=== PATIENT | female | born 1945 | race Caucasian/White ===

== ENCOUNTER 2017-10-17 10:53 | Observation (INO) | payer OTHER ==
[2017-10-17 11:19] VITALS: BMI 34.8
--- NOTE | 2017-10-17 11:48 | PDOC ---
History of Present Illness - General Chief Complaint: Pain Stated Complaint: LEG PAIN Time Seen by Provider: 10/17/17 11:21 History Source: Patient Exam Limitations: No Limitations - History of Present Illness Initial Comments: 10/17/17 11:33 The patient is a 72F with a PMH of HTN, a-fib (on eliquis), COPD, and depression who presents to the ER with L ankle swelling and redness. The patient states that she noticed her ankle and dorsal foot getting red and slightly swollen 2 days ago. She admits to cellulitis in the same area in the past and states this feels identical to that pain. The patient denies any systemic symptoms including fevers, chills, nausea, vomiting, calf swelling, CP , SOB. Past History - Past Medical History Allergies/Adverse Reactions: Allergies Allergy/AdvReac Type Severity Reaction Status Date / Time No Known Allergies Allergy Verified 10/17/17 11:11 Home Medications: Ambulatory Orders Apixaban [Eliquis] 5 mg PO BID 10/17/17 Aspirin [ASA -] 81 mg PO DAILY 10/17/17 Brimonidine Tartrate/Timolol [Combigan Eye Drops] 1 drop OU HS 10/17/17 Cholecalciferol (Vitamin D3) [Vitamin D3] 1,000 unit PO DAILY 10/17/17 Cyanocobalamin [Vitamin B12 -] 100 mcg PO DAILY 10/17/17 Furosemide [Lasix] 20 mg PO DAILY 10/17/17 Latanoprost 0.005% Eye Drops [Xalatan 0.005% Eye Drops -] 1 drop HS 10/17/17 Levothyroxine Sodium [Levoxyl] 150 mcg PO DAILY 10/17/17 Lisinopril [Prinivil] 10 mg PO DAILY 10/17/17 Metoprolol Succinate [Toprol Xl] 100 mg PO Q12H 10/17/17 Oxybutynin Chloride [Ditropan Xl] 5 mg PO DAILY 10/17/17 Pantoprazole Sodium [Protonix] 40 mg PO DAILY 10/17/17 Simvastatin [Zocor -] 40 mg PO HS 10/17/17 Cardiac Disorders: Yes (afib) COPD: No HTN: Yes Hypercholesterolemia: Yes Thyroid Disease: Yes Other medical history: glacoma - Suicide/Smoking/Psychosocial Hx Smoking History: Former smoker Have you smoked in the past 12 months: No Information on smoking cessation initiated: No Hx Alcohol Use: No Drug/Substance Use Hx: No Substance Use Type: None Review of Systems - Review of Systems Able to Perform ROS?: Yes Comments:: 10/17/17 11:54 GENERAL/CONSTITUTIONAL: No fever or chills. No weakness. HEAD, EYES, EARS, NOSE AND THROAT: No change in vision. No ear pain or discharge. No sore throat. CARDIOVASCULAR: No chest pain, palpitations, or lightheadedness. RESPIRATORY: No cough, wheezing, shortness of breath, or hemoptysis. GASTROINTESTINAL: No nausea, vomiting, diarrhea, constipation, or abdominal pain. GENITOURINARY: No dysuria, frequency, hematuria, or change in urination. MUSCULOSKELETAL: No joint or muscle swelling or pain. No neck or back pain. SKIN: Positive for redness and swelling on L ankle and dorsal surface of foot. NEUROLOGIC: No headache, numbness, tingling, weakness, loss of consciousness, or change in strength/sensation. ENDOCRINE: No increased thirst. No abnormal weight change. HEMATOLOGIC/LYMPHATIC: No anemia, easy bleeding, or history of blood clots. ALLERGIC/IMMUNOLOGIC: No hives or skin allergy. Is the patient limited Turkish proficient: No *Physical Exam - Vital Signs Last Vital Signs Temp Pulse Resp BP Pulse Ox 98.4 F 84 18 156/100 97 10/17/17 11:11 10/17/17 11:11 10/17/17 11:11 10/17/17 11:11 10/17/17 11:11 - Physical Exam Comments: 10/17/17 11:54 GENERAL: Well developed, well nourished. Awake and alert. No acute distress. HEENT: Normocephalic, atraumatic. Hearing grossly normal. Moist mucous membranes. PERRLA, EOMI. No conjunctival pallor. NECK: Supple. Full ROM. CARDIOVASCULAR: Irregularly irregular rate and rhythm. No murmurs, rubs, or gallops. PULMONARY: No evidence of respiratory distress. Lungs clear to auscultation bilaterally. No wheezing, rales or rhonchi. ABDOMINAL: Soft. Non-tender. Non-distended. No rebound or guarding. GENITOURINARY: No CVA tenderness bilaterally. MUSCULOSKELETAL: Normal range of motion at all joints. No bony deformities or tenderness. EXTREMITIES: Redness over medial malleolus and dorsal surface of L foot, tender to palpation. DP pulses 2+ b/l. No cyanosis. No clubbing. No edema. No calf tenderness or swelling. SKIN: Warm and dry. Normal capillary refill. No rashes. No jaundice. NEUROLOGICAL: Alert, awake, appropriate. Cranial nerves 2-12 intact. Normal speech. Gait is normal without ataxia. PSYCHIATRIC: Cooperative. Good eye contact. Appropriate mood and affect. ED Treatment Course - LABORATORY CBC & Chemistry Diagram: 10/17/17 12:14 10/17/17 12:14 Medical Decision Making - Medical Decision Making 10/17/17 11:55 The patient is a 72F with a PMH of HTN, a-fib (on eliquis), COPD, and depression who presents with L dorsal and ankle redness and swelling. This is likely cellulitis. There are no signs of crepitus. The redness is very mild but it is warm to touch. Pending basic labs. Will give dose of IV abx and likely d/ c home with PO abx. 10/17/17 14:47 The patient stated to my attending that she has not been able to ambulate on her foot. Giving broad spectrum abx. Pt endorsed to [facility] for obs admission under Dr. Puentes. *DC/Admit/Observation/Transfer Diagnosis at time of Disposition: Cellulitis Qualifiers: Site of cellulitis: extremity Site of cellulitis of extremity: lower extremity Laterality: left Qualified Code(s): L03.116 - Cellulitis of left lower limb - Discharge Dispostion Condition at time of disposition: Stable Decision to Admit order: Yes - Referrals - Patient Instructions - Post Discharge Activity
--- NOTE | 2017-10-17 11:59 | PDOC ---
Attending Attestation - HPI HPI: 10/17/17 12:18 The patient is a 72-year-old female coming from an assisted living facility, with a past medical history of afib (on Eliquis), HTN, COPD, and depression, who presents to the ED with 2 days of left ankle and dorsal foot redness and swelling. The patient states that she has not been able to ambulate around her home due to the pain. She is visited regularly by aides who have keys to her apartment. She denies any recent trauma to the left foot or any recent falls. She reports having cellulitis about 2.5 years ago. She denies any history of DVTs or gout. The patient denies any fever, chills, nausea, vomiting, diarrhea, or abdominal pain. She denies having any other symptoms. Allergies: NKA PCP: Dr. Juli Buck - Medical Decision Making 10/17/17 12:27 Dr. Juli Buck was paged and notified via phone service. <Nikki Pierce - Last Filed: 10/17/17 12:27> - Resident Resident Name: Cristhian Lopez - ED Attending Attestation I have performed the following: I have examined & evaluated the patient, The case was reviewed & discussed with the resident, I agree w/resident's findings & plan, Exceptions are as noted - Physicial Exam PE: 10/17/17 12:13 awakealert lungs clear bilaterally heart irreg nomrg. abd soft nt nd. left ankle swollen, ttp , warmth, erythema. dorsum foot erythema. 2 + dp/ pt. knee Nt nd. nuero alert oriented x 3. - Medical Decision Making 10/17/17 12:14 72 yo F h/o afib, htn , HLD CHF with left leg sweling, pain unable to walk redness and swelling on left ankle exam, ttp. differential: cellulitis, osteo, gout, plan labs xray, lactate. abx. will portia require admission due to fact can not walk. will d/w pt pcp dr. juli buck 10/17/17 14:17 d/w pt pcp Heber Lawrence, will admit due to fact in assisted living, hasn't been able to walk due to pain and cellulitis. given vanco and zosyn. Dr Buck does not admit to [facility]. <Amee Lee - Last Filed: 10/17/17 14:18> Attestations - Attestations 10/17/17 12:18 Documentation prepared by Nikki Pierce, acting as medical language specialist for Amee Lee MD. <Nikki Pierce - Last Filed: 10/17/17 12:27>
[2017-10-17 12:34] LABS: BASO % 0.4 % (0-2.0); EOS % 1.2 % (0-4.5); HEMOGLOBIN 13.9 GM/dL (10.7-15.3); MEAN CELL VOLUME 84.8 fl (80-96); MEAN PLT VOLUME 7.6 fl (7.5-11.1); MONO % 10.1 % (3.8-10.2); NEUT % 77.3 % (42.8-82.8); PLATELET COUNT 231 K/MM3 (134-434); RBC 4.95 M/mm3 (3.60-5.2); RDW 15.4 % (11.6-15.6); WHITE BLOOD COUNT 9.5 K/mm3 (4.0-10.0)
[2017-10-17 13:05] LABS: ALK PHOS 116 U/L (45-117); ANION GAP 10 (8-16); BILIRUBIN,TOTAL 1.1 mg/dL (0.2-1.0); BLOOD UREA NITROGEN 20 mg/dL (7-18); CALCIUM 10.6 mg/dL (8.5-10.1); CHLORIDE 104 mmol/L (98-107); CO2 26 mmol/L (21-32); GLUCOSE,RANDOM 112 mg/dL (74-106); SGOT/AST 18 U/L (15-37); SGPT/ALT 13 U/L (12-78); SODIUM 140 mmol/L (136-145); TOT PROT 7.6 g/dl (6.4-8.2)
[2017-10-17] MEDS ORDERED: DEXTROSE 5% IVPB ONE (14:12)
[2017-10-17] MEDS ORDERED: VANCOMYCIN IVPB ONE (14:12)
[2017-10-17] MEDS ORDERED: WATER IVPB ONE (14:12)
[2017-10-17] MEDS ORDERED: PIPERACILLIN/TAZOB 3.375 GM 3.375 GM in DEXTROSE 5%-WATER - 50 ML IVPB ONE (14:13)
[2017-10-17] MEDS ORDERED: PIPERACILLIN/TAZOB 3.375 GM 3.375 GM/50 ML BAG IVPB ONE (14:17)
[2017-10-17] MEDS ORDERED: VANCOMYCIN 1 GRAM (PRE-DOCKED) 1,000 MG/250 ML BAG IVPB ONE (14:36)
--- NOTE | 2017-10-17 17:00 | HP ---
CHIEF COMPLAINT: Left ankle pain and swelling, inability to ambulate PCP: Dr. Nikolas Buck HISTORY OF PRESENT ILLNESS: This is a 72 year old female with PMHx of corin (on Eliquis), HTN, COPD, depression, hypothyroidism, who presented to the ED with left ankle erythema and pain and inability to ambulate for 2 days. The patient reports she had cellulitis about 2.5 years ago and that she feels she has it again. She states about 2 days ago she started having pain in her left ankle and noticed some swelling and erythema. She decided to come in after the pain was so severe she could not walk. She denies any calf pain, chest pain, palpitations, headaches, dizziness, syncope, trauma to the left leg, urinary symptoms, fever, chills. ER course was notable for: (1) Temp 98.4, pulse 84, BP 156/100, resp 18, O2 97% on RA (2) Left foot/ankle x-ray with osteoporosis and mild degenerative arthritis with no fracture or acute bone or joint abnormalities Recent Travel: denies PAST MEDICAL HISTORY: as above PAST SURGICAL HISTORY: denies Social History: Smoking: denies Alcohol: denies Drugs: denies Family History: Allergies No Known Allergies Allergy (Verified 10/17/17 11:11) HOME MEDICATIONS: Home Medications Medication Instructions Recorded Apixaban [Eliquis] 5 mg PO BID 10/17/17 Aspirin [ASA -] 81 mg PO DAILY 10/17/17 Brimonidine Tartrate/Timolol 1 drop OU HS 10/17/17 [Combigan Eye Drops] Cholecalciferol (Vitamin D3) 1,000 unit PO DAILY 10/17/17 [Vitamin D3] Cyanocobalamin [Vitamin B12 -] 100 mcg PO DAILY 10/17/17 Furosemide [Lasix] 20 mg PO DAILY 10/17/17 Latanoprost 0.005% Eye Drops 1 drop HS 10/17/17 [Xalatan 0.005% Eye Drops -] Levothyroxine Sodium [Levoxyl] 150 mcg PO DAILY 10/17/17 Lisinopril [Prinivil] 10 mg PO DAILY 10/17/17 Metoprolol Succinate [Toprol Xl] 100 mg PO Q12H 10/17/17 Oxybutynin Chloride [Ditropan Xl] 5 mg PO DAILY 10/17/17 Pantoprazole Sodium [Protonix] 40 mg PO DAILY 10/17/17 Simvastatin [Zocor -] 40 mg PO HS 10/17/17 REVIEW OF SYSTEMS CONSTITUTIONAL: Absent: fever, chills, diaphoresis, generalized weakness, malaise, loss of appetite, weight change HEENT: Absent: rhinorrhea, nasal congestion, throat pain, throat swelling, difficulty swallowing, mouth swelling, ear pain, eye pain, visual changes CARDIOVASCULAR: Absent: chest pain, syncope, palpitations, irregular heart rate, lightheadedness , peripheral edema RESPIRATORY: Absent: cough, shortness of breath, dyspnea with exertion, orthopnea, wheezing, stridor, hemoptysis GASTROINTESTINAL: Absent: abdominal pain, abdominal distension, nausea, vomiting, diarrhea, constipation, melena, hematochezia GENITOURINARY: Absent: dysuria, frequency, urgency, hesitancy, hematuria, flank pain, genital pain MUSCULOSKELETAL: Left ankle swelling and redness that began 2 days ago, unable to ambulate due to pain. Absent: back pain, neck pain SKIN: Absent: rash, itching, pallor HEMATOLOGIC/IMMUNOLOGIC: Absent: easy bleeding, easy bruising, lymphadenopathy, frequent infections ENDOCRINE: Absent: unexplained weight gain, unexplained weight loss, heat intolerance, cold intolerance NEUROLOGIC: Absent: headache, focal weakness or paresthesias, dizziness, seizure, mental status changes, bladder or bowel incontinence PSYCHIATRIC: Absent: anxiety, depression, suicidal or homicidal ideation, hallucinations. PHYSICAL EXAMINATION Vital Signs - 24 hr 10/17/17 10/17/17 11:11 15:28 Temperature 98.4 F 97.9 F Pulse Rate 84 Pulse Rate [ 87 Right Radial] Respiratory 18 17 Rate Blood Pressure 156/100 Blood Pressure 125/77 [Left Arm] O2 Sat by Pulse 97 95 Oximetry (%) GENERAL: Awake, alert, and fully oriented, in no acute distress. HEAD: Normal with no signs of trauma. EYES: Patient wearing sunglasses which she refused to remove EARS, NOSE, THROAT: Ears normal, nares patent, oropharynx clear without exudates. Moist mucous membranes. LUNGS: Breath sounds equal, clear to auscultation bilaterally. No wheezes, and no crackles. No accessory muscle use. HEART: Irregular pulse, normal S1 and S2 ABDOMEN: Soft, nontender, not distended, normoactive bowel sounds, no guarding, no rebound, no masses. MUSCULOSKELETAL: Normal range of motion at all joints. No bony deformities or tenderness. No CVA tenderness. UPPER EXTREMITIES: 2+ pulses, warm, well-perfused. No cyanosis. No clubbing. No peripheral edema. LOWER EXTREMITIES: Left foot/ankle with some patches of erythema/edema. Left calf tenderness with foot flexion. 2+ pulses, warm, well-perfused. PSYCHIATRIC: Cooperative. Appropriate mood and affect. SKIN: Warm, dry, normal turgor, no rashes or lesions noted, normal capillary refill. Laboratory Results - last 24 hr 10/17/17 10/17/17 10/17/17 12:14 12:14 14:33 WBC 9.5 RBC 4.95 Hgb 13.9 Hct 42.0 MCV 84.8 MCH 28.0 MCHC 33.0 RDW 15.4 Plt Count 231 MPV 7.6 Neutrophils % 77.3 Lymphocytes % 11.0 Monocytes % 10.1 Eosinophils % 1.2 Basophils % 0.4 Nucleated RBC % 0 Sodium 140 Potassium 4.0 Chloride 104 Carbon Dioxide 26 Anion Gap 10 BUN 20 H Creatinine 1.0 Creat Clearance w eGFR 54.50 Random Glucose 112 H Lactic Acid 1.1 Calcium 10.6 H Total Bilirubin 1.1 H AST 18 ALT 13 Alkaline Phosphatase 116 Total Protein 7.6 Albumin 4.0 Assessment: This is a 72 year old female with PMHx of a.fib (on Eliquis), HTN, COPD, depression, hypothyroidism, who presented to the ED with left ankle erythema and pain and inability to ambulate for 2 days. Plan: 1) Left ankle swelling, slight edema - Cellulitis vs. gout vs. DVT - F/u lower extremity ultrasound to r/o DVT - F/u uric acid level - Received Vancomycin and Zosyn in the ED. F/u ID consult for further abx recommendations (patient afebrile with normal WBC) 2) A.fib - Continue Eliquis (patient reports compliance) 3) Hypothyroidism - Continue Synthroid 4) HTN - Continue Lisinopril - Continue Toprol XL - Continue Lasix 5) Hyperlipidemia - Continue statin 6) F/E/N: - Sodium controlled diet - Monitor electrolytes 7) Prophylaxis: - PT evaluation - Continue Eliquis 8) Dispo: - Once condition improves CODE STATUS: FULL CODE Visit type - Emergency Visit Emergency Visit: Yes ED Registration Date: 10/17/17 Care time: The patient presented to the Emergency Department on the above date and was hospitalized for further evaluation of their emergent condition. - New Patient This patient is new to me today: Yes Date on this admission: 10/17/17 - Critical Care Critical Care patient: No Hospitalist Screening - Colonoscopy Questionnaire Colonoscopy Questionnaire: Colonoscopy Questionnaire - Patient: 50 - 75 years old and never had a screening colonoscopy: Unknown History of colon or rectal polyps, or CA: Unknown History of IBD, Crohn's disease or UC: Unknown History of abdominal radiation therapy as a child: Unknown - Relative: 1 with colon or rectal CA, or polyps at age 60 or younger: Unknown Colon or rectal CA diagnosed at age 45 or younger: Unknown Multiple relatives with colon or rectal CA: Unknown - Outcome: Screening Result: Negative Screen
--- NOTE | 2017-10-17 19:00 | CON.ID ---
Consult Consult Specialty:: infectious diseases Reason for Consultation:: cellulittis of the foot - History of Present Illness Chief Complaint: pain and swelling of the foot History of Present Illness: 72F with a PMH of HTN, a-fib (on eliquis), COPD, and depression who presents to the ER with L ankle and foot swelling and redness. The patient states that she noticed her ankle and dorsal foot getting red and slightly swollen 2 days ago. She admits to cellulitis in the same area in the past and states this feels identical to that pain. The patient denies any systemic symptoms including fevers, chills, nausea, vomiting, calf swelling, CP, SOB. patient mentions that she cannot place weight on the foot at all - History Source History Provided By: Patient, Medical Record Limitations to Obtaining History: Poor Historian - Alcohol/Substance Use Hx Alcohol Use: No - Smoking History Smoking history: Former smoker Have you smoked in the past 12 months: No Home Medications - Allergies Allergies/Adverse Reactions: Allergies Allergy/AdvReac Type Severity Reaction Status Date / Time No Known Allergies Allergy Verified 10/17/17 11:11 - Home Medications Home Medications: Ambulatory Orders Apixaban [Eliquis] 5 mg PO BID 10/17/17 Aspirin [ASA -] 81 mg PO DAILY 10/17/17 Brimonidine Tartrate/Timolol [Combigan Eye Drops] 1 drop OU HS 10/17/17 Cholecalciferol (Vitamin D3) [Vitamin D3] 1,000 unit PO DAILY 10/17/17 Cyanocobalamin [Vitamin B12 -] 100 mcg PO DAILY 10/17/17 Furosemide [Lasix] 20 mg PO DAILY 10/17/17 Latanoprost 0.005% Eye Drops [Xalatan 0.005% Eye Drops -] 1 drop HS 10/17/17 Levothyroxine Sodium [Levoxyl] 150 mcg PO DAILY 10/17/17 Lisinopril [Prinivil] 10 mg PO DAILY 10/17/17 Metoprolol Succinate [Toprol Xl] 100 mg PO Q12H 10/17/17 Oxybutynin Chloride [Ditropan Xl] 5 mg PO DAILY 10/17/17 Pantoprazole Sodium [Protonix] 40 mg PO DAILY 10/17/17 Simvastatin [Zocor -] 40 mg PO HS 10/17/17 Review of Systems - Review of Systems Constitutional: reports: No Symptoms Eyes: reports: No Symptoms HENT: reports: No Symptoms Neck: reports: No Symptoms Cardiovascular: reports: No Symptoms Respiratory: reports: No Symptoms Gastrointestinal: reports: No Symptoms Genitourinary: reports: No Symptoms Musculoskeletal: reports: Joint Swelling, Muscle Pain, Other (left side) Integumentary: reports: No Symptoms Neurological: reports: No Symptoms Endocrine: reports: No Symptoms Hematology/Lymphatic: reports: No Symptoms Psychiatric: reports: No Symptoms Physical Exam Vital Signs: Vital Signs Temperature 97.8 F 10/17/17 17:20 Pulse Rate 91 H 10/17/17 17:20 Respiratory Rate 17 10/17/17 17:20 Blood Pressure 127/89 10/17/17 17:20 O2 Sat by Pulse Oximetry (%) 95 10/17/17 17:20 Constitutional: Yes: Well Nourished, Calm, Mild Distress Eyes: Yes: Conjunctiva Clear HENT: Yes: Atraumatic, Normocephalic Neck: Yes: Supple, Trachea Midline Cardiovascular: Yes: Pulse Irregular Respiratory: Yes: Regular, CTA Bilaterally Gastrointestinal: Yes: Normal Bowel Sounds, Soft Musculoskeletal: Yes: Joint Swelling, Other Extremities: Yes: WNL Integumentary: Yes: Erythema Neurological: Yes: Alert, Oriented Psychiatric: Yes: Alert, Oriented Labs: CBC, BMP 10/17/17 12:14 10/17/17 12:14 Imaging - Results X-ray: Report Reviewed, Image Reviewed Assessment/Plan 72 year old female with PMHx of a.fib (on Eliquis), HTN, COPD, depression, hypothyroidism, who presented to the ED with left ankle erythema and pain and inability to ambulate for 2 days. 1) Left ankle swelling, slight edema - Cellulitis vs. gout 2) A.fib 3) Hypothyroidism 4) HTN 5) Hyperlipidemia plan follow imaging studies patient received vanco and zosyn estrella top vanco continue zosyn for now await uric acid level monitor for movement of the foot
[2017-10-17] MEDS ORDERED: COLCHICINE 0.6 MG TABLET (FP) PO ONE ×4 (20:00→23:45)
[2017-10-17] MEDS ORDERED: PATIENT'S OWN MEDICATION (NON-FORMULARY) (Brimonidine Tartrate/Timolol [Combigan 0.2%-0.5% OU SCH (22:00)
[2017-10-17] MEDS: APIXABAN 5 MG TABLET PO SCH (22:44)
[2017-10-17] MEDS: ATORVASTATIN CA 20 MG TABLET (FP) PO SCH (22:44)
[2017-10-17] MEDS: LATANOPROST 0.005% OPHTH SOLN 2.5ML BOTTLE OU SCH (22:45)
[2017-10-17] MEDS: TIMOLOL 0.5% OPHTHALMIC SOL 5 ML BOTTLE OU SCH (22:45)
[2017-10-17] MEDS: BRIMONIDINE TARTRATE 0.2% OPHTHALMIC 5 ML BOTTLE OU SCH (22:45)
[2017-10-18] MEDS ORDERED: PIPERACILLIN/TAZOBACTAM 3.375 GM VIAL IVPB ONE ×3 (01:53→16:51)
[2017-10-18] MEDS ORDERED: DEXTROSE 5%-WATER - 50 ML IVPB ONE ×3 (01:53→16:51)
[2017-10-18] MEDS: PIPERACILLIN/TAZOB 3.375 GM 3.375 GM in DEXTROSE 5%-WATER - 50 ML IVPB SCH ×3 (02:12→17:36)
[2017-10-18] MEDS: LEVOTHYROXINE NA 150 MCG TABLET PO SCH (06:08)
[2017-10-18 07:12] LABS: HEMOGLOBIN 12.7 GM/dL (10.7-15.3); MCH 28.3 pg (25.7-33.7); MCHC 33.5 g/dl (32.0-36.0); MEAN CELL VOLUME 84.5 fl (80-96); MEAN PLT VOLUME 7.3 fl (7.5-11.1); PLATELET COUNT 214 K/MM3 (134-434); RDW 14.8 % (11.6-15.6); WHITE BLOOD COUNT 9.8 K/mm3 (4.0-10.0)
[2017-10-18 08:37] LABS: ALBUMIN 3.4 g/dl (3.4-5.0); ANION GAP 9 (8-16); BILIRUBIN,TOTAL 1.3 mg/dL (0.2-1.0); BLOOD UREA NITROGEN 20 mg/dL (7-18); CHLORIDE 106 mmol/L (98-107); CO2 24 mmol/L (21-32); GLUCOSE,RANDOM 112 mg/dL (74-106); POTASSIUM 3.8 mmol/L (3.5-5.1); SGOT/AST 16 U/L (15-37); SODIUM 139 mmol/L (136-145); TOT PROT 6.9 g/dl (6.4-8.2)
[2017-10-18 08:53] LABS: ALK PHOS 101 U/L (45-117); SGPT/ALT 11 U/L (12-78)
[2017-10-18] MEDS ORDERED: PNEUMOC 13-VAL CONJ-DIP CRM/PF 0.5 ML DISP.SYRIN IM ONE (10:00)
[2017-10-18] MEDS: PANTOPRAZOLE 40 MG TABLET (FP) PO SCH (10:26)
[2017-10-18] MEDS: ASPIRIN 81 MG CHEWABLE TABLETS PO SCH (10:26)
[2017-10-18] MEDS: FUROSEMIDE 20 MG TABLET (FP) PO SCH (10:26)
[2017-10-18] MEDS: LISINOPRIL 10 MG TABLET (FP) PO SCH (10:26)
[2017-10-18] MEDS: TIMOLOL 0.5% OPHTHALMIC SOL 5 ML BOTTLE OU SCH ×2 (10:26→22:01)
[2017-10-18] MEDS: BRIMONIDINE TARTRATE 0.2% OPHTHALMIC 5 ML BOTTLE OU SCH ×2 (10:26→22:02)
[2017-10-18] MEDS: CHOLECALCIFEROL (VITAMIN D3) 1,000 UNIT TABLET (FP) PO SCH (10:26)
[2017-10-18] MEDS: SOLIFENACIN SUCCINATE 5 MG TAB (FP) PO SCH (10:26)
[2017-10-18] MEDS: APIXABAN 5 MG TABLET PO SCH ×2 (10:27→22:01)
[2017-10-18] MEDS ORDERED: PT OWN MED DRAWER 7, Y5N ONE (11:54)
[2017-10-18] MEDS: COLCHICINE 0.6 MG TABLET (FP) PO SCH (11:57)
[2017-10-18] MEDS: CYANOCOBALAMIN (VITAMIN B-12) 100 MCG TABLET PO SCH (12:27)
--- NOTE | 2017-10-18 13:35 | PN ---
Progress Note (short form) - Note Progress Note: Subjective: The patient was seen and examined at the bedside, she states her left foot pain has improved Only walked 5 feet with PT Edema and pain improved with colchysine Current Medications Generic Name Dose Route Start Last Admin Trade Name Aury PRN Reason Stop Dose Admin Apixaban 5 mg 10/17/17 22:00 10/18/17 10:27 Eliquis - PO 5 mg BID DOM Administration Aspirin 81 mg 10/18/17 10:00 10/18/17 10:26 Asa - PO 81 mg DAILY DOM Administration Atorvastatin Calcium 20 mg 10/17/17 22:00 10/17/17 22:44 Lipitor - PO 20 mg HS DOM Administration Brimonidine Tartrate 1 drop 10/17/17 22:00 10/18/17 10:26 Alphagan 0.2% - OU 1 drop BID DOM Administration Cholecalciferol 1,000 unit 10/18/17 10:00 10/18/17 10:26 Vitamin D3 - PO 1,000 unit DAILY DOM Administration Colchicine 0.6 mg 10/18/17 10:00 10/18/17 11:57 Colcrys - PO 0.6 mg DAILY DOM Administration Cyanocobalamin 100 mcg 10/18/17 10:00 10/18/17 12:27 Vitamin B12 - PO 100 mcg DAILY DOM Administration Furosemide 20 mg 10/18/17 10:00 10/18/17 10:26 Lasix - PO 20 mg DAILY DOM Administration Piperacillin Sod/Tazobactam 50 mls @ 100 mls/hr 10/18/17 02:00 10/18/17 10:44 Sod 3.375 gm/ Dextrose IVPB 100 mls/hr Q8H-IV DOM Administration Protocol Latanoprost 1 drop 10/17/17 22:00 10/17/17 22:45 Xalatan 0.005% Eye Drops - OU 1 drop HS DOM Administration Levothyroxine Sodium 150 mcg 10/18/17 07:00 10/18/17 06:08 Synthroid - PO 150 mcg 0700 DOM Administration Lisinopril 10 mg 10/18/17 10:00 10/18/17 10:26 Prinivil PO 10 mg DAILY DOM Administration Metoprolol Succinate 100 mg 10/17/17 22:00 10/18/17 10:26 Toprol Xl - PO 100 mg BID DOM Administration Pantoprazole Sodium 40 mg 10/18/17 10:00 10/18/17 10:26 Protonix - PO 40 mg DAILY DOM Administration Solifenacin 5 mg 10/18/17 10:00 10/18/17 10:26 Vesicare - PO 5 mg DAILY DOM Administration Timolol Maleate 1 drop 10/17/17 22:00 10/18/17 10:26 Timoptic 0.5% OU 1 drop BID DOM Administration Objective: Vital Signs Period Temp Pulse Resp BP Sys/[place] Pulse Ox Last 24 Hr 97.8 F-99.6 F 82-101 17-18 122-157/58-94 95-97 Physical Exam: General: NAD Lungs: CTA bilaterally Heart: Irregular rate, S1S2 Abd: Soft, non-tender, non-distended. Normoactive bowel sounds Ext: Warm, well-perfused. 2+ DP/PT bilaterally. Abd to move all extremities CBCD WBC 9.8 K/mm3 (4.0-10.0) 10/18/17 06:41 RBC 4.50 M/mm3 (3.60-5.2) 10/18/17 06:41 Hgb 12.7 GM/dL (10.7-15.3) 10/18/17 06:41 Hct 38.0 % (32.4-45.2) 10/18/17 06:41 MCV 84.5 fl (80-96) 10/18/17 06:41 MCHC 33.5 g/dl (32.0-36.0) 10/18/17 06:41 RDW 14.8 % (11.6-15.6) 10/18/17 06:41 Plt Count 214 K/MM3 (134-434) 10/18/17 06:41 MPV 7.3 fl (7.5-11.1) L 10/18/17 06:41 CMP Sodium 139 mmol/L (136-145) 10/18/17 06:47 Potassium 3.8 mmol/L (3.5-5.1) 10/18/17 06:47 Chloride 106 mmol/L (98-107) 10/18/17 06:47 Carbon Dioxide 24 mmol/L (21-32) 10/18/17 06:47 Anion Gap 9 (8-16) 06/01/18 06:47 BUN 20 mg/dL (7-18) H 10/18/17 06:47 Creatinine 1.0 mg/dL (0.55-1.02) 10/18/17 06:47 Creat Clearance w eGFR 54.50 (>60) 10/18/17 06:47 Random Glucose 112 mg/dL (74-106) H 10/18/17 06:47 Calcium 10.0 mg/dL (8.5-10.1) 10/18/17 06:47 Total Bilirubin 1.3 mg/dL (0.2-1.0) H 10/18/17 06:47 AST 16 U/L (15-37) 10/18/17 06:47 ALT 11 U/L (12-78) L 10/18/17 06:47 Alkaline Phosphatase 101 U/L (45-117) 10/18/17 06:47 Total Protein 6.9 g/dl (6.4-8.2) 10/18/17 06:47 Albumin 3.4 g/dl (3.4-5.0) 10/18/17 06:47 Microbiology 10/17/17 14:33 Blood - Peripheral Venous Blood Culture - Preliminary NO GROWTH OBTAINED AFTER 24 HOURS, INCUBATION TO CONTINUE FOR 4 DAYS. 10/17/17 14:33 Blood - Peripheral Venous Blood Culture - Preliminary NO GROWTH OBTAINED AFTER 24 HOURS, INCUBATION TO CONTINUE FOR 4 DAYS. Assessment: This is a 72 year old female with PMHx of a.fib (on Eliquis), HTN, COPD, depression, hypothyroidism, who presented to the ED with left ankle erythema and pain and inability to ambulate for 2 days. Plan: 1) Left ankle swelling, slight edema - Cellulitis vs. gout vs. DVT - Lower extremity ultrasound negative for DVT - Mildly elevated uric acid, treated with colchicine and improvement in symptoms - Continue Zosyn for now, can likely switch to oral or d/c today per ID 2) A.fib - Continue Eliquis (patient reports compliance) 3) Hypothyroidism - Continue Synthroid 4) HTN - Continue Lisinopril - Continue Toprol XL - Continue Lasix 5) Hyperlipidemia - Continue statin 6) F/E/N: - Sodium controlled diet - Monitor electrolytes 7) Prophylaxis: - PT evaluation: walked 5 feet - Continue Eliquis 8) Dispo: - Once condition improves CODE STATUS: FULL CODE Visit type - Emergency Visit Emergency Visit: Yes ED Registration Date: 10/17/17 Care time: The patient presented to the Emergency Department on the above date and was hospitalized for further evaluation of their emergent condition. - New Patient This patient is new to me today: No - Critical Care Critical Care patient: No
--- NOTE | 2017-10-18 15:26 | PN ---
Progress Note, Physician History of Present Illness: leg looks much better pain and swelling much better redness much better still not able to bear weight on it - Current Medication List Current Medications: Active Medications Apixaban (Eliquis -) 5 mg PO BID [facility] Last Admin: 10/18/17 10:27 Dose: 5 mg Aspirin (Asa -) 81 mg PO DAILY [facility] Last Admin: 10/18/17 10:26 Dose: 81 mg Atorvastatin Calcium (Lipitor -) 20 mg PO HS [facility] Last Admin: 10/17/17 22:44 Dose: 20 mg Brimonidine Tartrate (Alphagan 0.2% -) 1 drop OU BID [facility] Last Admin: 10/18/17 10:26 Dose: 1 drop Cholecalciferol (Vitamin D3 -) 1,000 unit PO DAILY [facility] Last Admin: 10/18/17 10:26 Dose: 1,000 unit Colchicine (Colcrys -) 0.6 mg PO DAILY [facility] Last Admin: 10/18/17 11:57 Dose: 0.6 mg Cyanocobalamin (Vitamin B12 -) 100 mcg PO DAILY [facility] Last Admin: 10/18/17 12:27 Dose: 100 mcg Furosemide (Lasix -) 20 mg PO DAILY [facility] Last Admin: 10/18/17 10:26 Dose: 20 mg Piperacillin Sod/Tazobactam (Sod 3.375 gm/ Dextrose) 50 mls @ 100 mls/hr IVPB Q8H-IV DOM; Protocol Last Admin: 10/18/17 10:44 Dose: 100 mls/hr Latanoprost (Xalatan 0.005% Eye Drops -) 1 drop OU HS [facility] Last Admin: 10/17/17 22:45 Dose: 1 drop Levothyroxine Sodium (Synthroid -) 150 mcg PO 0700 [facility] Last Admin: 10/18/17 06:08 Dose: 150 mcg Lisinopril (Prinivil) 10 mg PO DAILY [facility] Last Admin: 10/18/17 10:26 Dose: 10 mg Metoprolol Succinate (Toprol Xl -) 100 mg PO BID [facility] Last Admin: 10/18/17 10:26 Dose: 100 mg Pantoprazole Sodium (Protonix -) 40 mg PO DAILY [facility] Last Admin: 10/18/17 10:26 Dose: 40 mg Solifenacin (Vesicare -) 5 mg PO DAILY [facility] Last Admin: 10/18/17 10:26 Dose: 5 mg Timolol Maleate (Timoptic 0.5%) 1 drop OU BID [facility] Last Admin: 10/18/17 10:26 Dose: 1 drop - Objective Vital Signs: Vital Signs Temperature 98 F 10/18/17 15:24 Pulse Rate 82 10/18/17 15:24 Respiratory Rate 18 10/18/17 15:24 Blood Pressure 146/67 10/18/17 15:24 O2 Sat by Pulse Oximetry (%) 95 10/18/17 09:00 Constitutional: Yes: No Distress, Calm Cardiovascular: Yes: Pulse Irregular Respiratory: Yes: Regular, CTA Bilaterally Gastrointestinal: Yes: Normal Bowel Sounds, Soft Musculoskeletal: Yes: Other Extremities: Yes: WNL Neurological: Yes: Alert, Oriented Psychiatric: Yes: Alert, Oriented Labs: CBC, BMP 10/18/17 06:41 10/18/17 06:47 Assessment/Plan 72 year old female with PMHx of a.fib (on Eliquis), HTN, COPD, depression, hypothyroidism, who presented to the ED with left ankle erythema and pain and inability to ambulate for 2 days. 1) Left ankle swelling, slight edema - Cellulitis vs. gout 2) A.fib 3) Hypothyroidism 4) HTN 5) Hyperlipidemia plan follow imaging studies patient received vanco and zosyn stop zosyn motrin physio leg is improving
[2017-10-18] MEDS ORDERED: IBUPROFEN 400 MG TABLET (FP) PO ONE (18:45)
[2017-10-18] MEDS: ATORVASTATIN CA 20 MG TABLET (FP) PO SCH (22:01)
[2017-10-18] MEDS: LATANOPROST 0.005% OPHTH SOLN 2.5ML BOTTLE OU SCH (22:01)
[2017-10-19] MEDS: LEVOTHYROXINE NA 150 MCG TABLET PO SCH (06:42)
[2017-10-19] MEDS: CYANOCOBALAMIN (VITAMIN B-12) 100 MCG TABLET PO SCH (10:05)
[2017-10-19] MEDS: ASPIRIN 81 MG CHEWABLE TABLETS PO SCH (10:06)
[2017-10-19] MEDS: SOLIFENACIN SUCCINATE 5 MG TAB (FP) PO SCH (10:06)
[2017-10-19] MEDS: FUROSEMIDE 20 MG TABLET (FP) PO SCH (10:06)
[2017-10-19] MEDS: COLCHICINE 0.6 MG TABLET (FP) PO SCH (10:06)
[2017-10-19] MEDS: CHOLECALCIFEROL (VITAMIN D3) 1,000 UNIT TABLET (FP) PO SCH (10:06)
[2017-10-19] MEDS: LISINOPRIL 10 MG TABLET (FP) PO SCH (10:06)
[2017-10-19] MEDS: PANTOPRAZOLE 40 MG TABLET (FP) PO SCH (10:06)
[2017-10-19] MEDS: APIXABAN 5 MG TABLET PO SCH ×2 (10:07→21:30)
[2017-10-19] MEDS: BRIMONIDINE TARTRATE 0.2% OPHTHALMIC 5 ML BOTTLE OU SCH ×2 (10:07→21:30)
[2017-10-19] MEDS: TIMOLOL 0.5% OPHTHALMIC SOL 5 ML BOTTLE OU SCH ×2 (10:08→21:31)
--- NOTE | 2017-10-19 13:12 | PN ---
Progress Note, Physician History of Present Illness: Pt states pain in Lt foot/ankle has improved. Denies pain with movement. - Current Medication List Current Medications: Active Medications Apixaban (Eliquis -) 5 mg PO BID [facility] Last Admin: 10/19/17 10:07 Dose: 5 mg Aspirin (Asa -) 81 mg PO DAILY [facility] Last Admin: 10/19/17 10:06 Dose: 81 mg Atorvastatin Calcium (Lipitor -) 20 mg PO HS [facility] Last Admin: 10/18/17 22:01 Dose: 20 mg Brimonidine Tartrate (Alphagan 0.2% -) 1 drop OU BID [facility] Last Admin: 10/19/17 10:07 Dose: 1 drop Cholecalciferol (Vitamin D3 -) 1,000 unit PO DAILY [facility] Last Admin: 10/19/17 10:06 Dose: 1,000 unit Colchicine (Colcrys -) 0.6 mg PO DAILY [facility] Last Admin: 10/19/17 10:06 Dose: 0.6 mg Cyanocobalamin (Vitamin B12 -) 100 mcg PO DAILY [facility] Last Admin: 10/19/17 10:05 Dose: 100 mcg Furosemide (Lasix -) 20 mg PO DAILY [facility] Last Admin: 10/19/17 10:06 Dose: 20 mg Latanoprost (Xalatan 0.005% Eye Drops -) 1 drop OU [facility] Last Admin: 10/18/17 22:01 Dose: 1 drop Levothyroxine Sodium (Synthroid -) 150 mcg PO 0700 [facility] Last Admin: 10/19/17 06:42 Dose: 150 mcg Lisinopril (Prinivil) 10 mg PO DAILY [facility] Last Admin: 10/19/17 10:06 Dose: 10 mg Metoprolol Succinate (Toprol Xl -) 100 mg PO BID [facility] Last Admin: 10/19/17 10:06 Dose: 100 mg Pantoprazole Sodium (Protonix -) 40 mg PO DAILY [facility] Last Admin: 10/19/17 10:06 Dose: 40 mg Solifenacin (Vesicare -) 5 mg PO DAILY [facility] Last Admin: 10/19/17 10:06 Dose: 5 mg Timolol Maleate (Timoptic 0.5%) 1 drop OU BID [facility] Last Admin: 10/19/17 10:08 Dose: 1 drop - Objective Vital Signs: Vital Signs Temperature 98.1 F 10/19/17 10:00 Pulse Rate 78 10/19/17 10:00 Respiratory Rate 18 10/19/17 10:00 Blood Pressure 156/76 10/19/17 10:00 O2 Sat by Pulse Oximetry (%) 98 10/19/17 01:00 Constitutional: Yes: No Distress Cardiovascular: Yes: Regular Rate and Rhythm Respiratory: Yes: Regular Gastrointestinal: Yes: Normal Bowel Sounds, Soft Edema: Yes Edema: LLE: 1+ Integumentary: Yes: Erythema (minimal erythema/mild edema of Lt foot/ankle, good ROM) Neurological: Yes: Alert Labs: CBC, BMP 10/18/17 06:41 10/18/17 06:47 CMP Sodium 139 mmol/L (136-145) 10/18/17 06:47 Potassium 3.8 mmol/L (3.5-5.1) 10/18/17 06:47 Chloride 106 mmol/L (98-107) 10/18/17 06:47 Carbon Dioxide 24 mmol/L (21-32) 10/18/17 06:47 Anion Gap 9 (8-16) 10/18/17 06:47 BUN 20 mg/dL (7-18) H 10/18/17 06:47 Creatinine 1.0 mg/dL (0.55-1.02) 10/18/17 06:47 Creat Clearance w eGFR 54.50 (>60) 10/18/17 06:47 Random Glucose 112 mg/dL (74-106) H 10/18/17 06:47 Lactic Acid 1.1 mmol/L (0.0-2.0) 10/17/17 14:33 Uric Acid 7.7 mg/dL (2.6-7.2) H 10/17/17 14:00 Calcium 10.0 mg/dL (8.5-10.1) 10/18/17 06:47 Total Bilirubin 1.3 mg/dL (0.2-1.0) H 10/18/17 06:47 AST 16 U/L (15-37) 10/18/17 06:47 ALT 11 U/L (12-78) L 10/18/17 06:47 Alkaline Phosphatase 101 U/L (45-117) 10/18/17 06:47 Total Protein 6.9 g/dl (6.4-8.2) 10/18/17 06:47 Albumin 3.4 g/dl (3.4-5.0) 10/18/17 06:47 Assessment/Plan Lt foot/ankle swelling cellulitis vs gout -- improved, now off antibiotics continue monitor
--- NOTE | 2017-10-19 14:36 | PN ---
Progress Note (short form) - Note Progress Note: states pain and swelling in the foot has resolved. was able to walk on it with a little discomfort. denies CP, SOB, fever, chills, N/V/C/D Current Medications Generic Name Dose Route Start Last Admin Trade Name Aury PRN Reason Stop Dose Admin Apixaban 5 mg 10/17/17 22:00 10/19/17 10:07 Eliquis - PO 5 mg BID [facility] Administration Aspirin 81 mg 10/18/17 10:00 10/19/17 10:06 Asa - PO 81 mg DAILY [facility] Administration Atorvastatin Calcium 20 mg 10/17/17 22:00 10/18/17 22:01 Lipitor - PO 20 mg HS DOM Administration Brimonidine Tartrate 1 drop 10/17/17 22:00 10/19/17 10:07 Alphagan 0.2% - OU 1 drop BID [facility] Administration Cholecalciferol 1,000 unit 10/18/17 10:00 10/19/17 10:06 Vitamin D3 - PO 1,000 unit DAILY [facility] Administration Colchicine 0.6 mg 10/18/17 10:00 10/19/17 10:06 Colcrys - PO 0.6 mg DAILY [facility] Administration Cyanocobalamin 100 mcg 10/18/17 10:00 10/19/17 10:05 Vitamin B12 - PO 100 mcg DAILY [facility] Administration Furosemide 20 mg 10/18/17 10:00 10/19/17 10:06 Lasix - PO 20 mg DAILY [facility] Administration Latanoprost 1 drop 10/17/17 22:00 10/18/17 22:01 Xalatan 0.005% Eye Drops - OU 1 drop HS [facility] Administration Levothyroxine Sodium 150 mcg 10/18/17 07:00 10/19/17 06:42 Synthroid - PO 150 mcg 0700 [facility] Administration Lisinopril 10 mg 10/18/17 10:00 10/19/17 10:06 Prinivil PO 10 mg DAILY [facility] Administration Metoprolol Succinate 100 mg 10/17/17 22:00 10/19/17 10:06 Toprol Xl - PO 100 mg BID [facility] Administration Pantoprazole Sodium 40 mg 10/18/17 10:00 10/19/17 10:06 Protonix - PO 40 mg DAILY [facility] Administration Solifenacin 5 mg 10/18/17 10:00 10/19/17 10:06 Vesicare - PO 5 mg DAILY [facility] Administration Timolol Maleate 1 drop 10/17/17 22:00 10/19/17 10:08 Timoptic 0.5% OU 1 drop BID [facility] Administration Last Vital Signs Temp Pulse Resp BP Pulse Ox 98.1 F 78 18 156/76 95 10/19/17 10:00 10/19/17 10:00 10/19/17 10:00 10/19/17 10:00 10/19/17 09:00 General NAD CV S1 S2 + Extremities L ankle slightly swollen joint. not tender no erythema. good ROM of flexion/dorsiflexion. pulses 2+ A/P 72yo F wtih PMH afib on eliquis, HTN, COPD, depression, hypothyroid presented to the ER wtih L ankle pain and inability to ambulate due to the pain 1. L ankle pain- liekly acute gout as symptoms improved after cochicine x1. received additional dose today. will stop as pain has resolved. advised on gout approved diet. should have uric acid levels checked in a few weeks to evaluate if she would benefit from prophylactic treatment. ambulated 100ft with PT today 2. Afib on eliquis- cont current management 3. HTn- controlled 4. COPD 5. Depression 6. hypothyroid- cont LT4 7. DVT ppx- eliquis 8. pt is medically optimized and cleared for discharge today. SW called facility to send back but facility refusing to take back over the weekend. pt will remain hospitalized till Saturday. Visit type - Emergency Visit Emergency Visit: Yes ED Registration Date: 10/17/17 Care time: The patient presented to the Emergency Department on the above date and was hospitalized for further evaluation of their emergent condition. - New Patient This patient is new to me today: Yes Date on this admission: 10/19/17 - Critical Care Critical Care patient: No - Discharge Referral Referred to [facility] No
[2017-10-19] MEDS: LATANOPROST 0.005% OPHTH SOLN 2.5ML BOTTLE OU SCH (21:31)
[2017-10-19] MEDS: ATORVASTATIN CA 20 MG TABLET (FP) PO SCH (21:32)
[2017-10-20] MEDS ORDERED: ACETAMINOPHEN 325 MG TABLET (FP) PO ONE (00:02)
[2017-10-20] MEDS: LEVOTHYROXINE NA 150 MCG TABLET PO SCH (06:10)
[2017-10-20] MEDS: BRIMONIDINE TARTRATE 0.2% OPHTHALMIC 5 ML BOTTLE OU SCH ×2 (09:59→21:27)
[2017-10-20] MEDS: APIXABAN 5 MG TABLET PO SCH ×2 (10:00→21:26)
[2017-10-20] MEDS: CHOLECALCIFEROL (VITAMIN D3) 1,000 UNIT TABLET (FP) PO SCH (10:00)
[2017-10-20] MEDS: LISINOPRIL 10 MG TABLET (FP) PO SCH (10:00)
[2017-10-20] MEDS: SOLIFENACIN SUCCINATE 5 MG TAB (FP) PO SCH (10:00)
[2017-10-20] MEDS: PANTOPRAZOLE 40 MG TABLET (FP) PO SCH (10:00)
[2017-10-20] MEDS: FUROSEMIDE 20 MG TABLET (FP) PO SCH (10:00)
[2017-10-20] MEDS: TIMOLOL 0.5% OPHTHALMIC SOL 5 ML BOTTLE OU SCH ×2 (10:00→21:27)
[2017-10-20] MEDS: ASPIRIN 81 MG CHEWABLE TABLETS PO SCH (10:00)
[2017-10-20] MEDS: CYANOCOBALAMIN (VITAMIN B-12) 100 MCG TABLET PO SCH (10:01)
--- NOTE | 2017-10-20 14:30 | PN ---
Progress Note, Physician History of Present Illness: Pt without new complaints. States she feels well. Denies pain in LE. - Current Medication List Current Medications: Active Medications Apixaban (Eliquis -) 5 mg PO BID [facility] Last Admin: 10/20/17 10:00 Dose: 5 mg Aspirin (Asa -) 81 mg PO DAILY [facility] Last Admin: 10/20/17 10:00 Dose: 81 mg Atorvastatin Calcium (Lipitor -) 20 mg PO [facility] Last Admin: 10/19/17 21:32 Dose: 20 mg Brimonidine Tartrate (Alphagan 0.2% -) 1 drop OU BID [facility] Last Admin: 10/20/17 09:59 Dose: 1 drop Cholecalciferol (Vitamin D3 -) 1,000 unit PO DAILY [facility] Last Admin: 10/20/17 10:00 Dose: 1,000 unit Cyanocobalamin (Vitamin B12 -) 100 mcg PO DAILY [facility] Last Admin: 10/20/17 10:01 Dose: 100 mcg Furosemide (Lasix -) 20 mg PO DAILY [facility] Last Admin: 10/20/17 10:00 Dose: 20 mg Latanoprost (Xalatan 0.005% Eye Drops -) 1 drop OU [facility] Last Admin: 10/19/17 21:31 Dose: 1 drop Levothyroxine Sodium (Synthroid -) 150 mcg PO 0700 [facility] Last Admin: 10/20/17 06:10 Dose: 150 mcg Lisinopril (Prinivil) 10 mg PO DAILY [facility] Last Admin: 10/20/17 10:00 Dose: 10 mg Metoprolol Succinate (Toprol Xl -) 100 mg PO BID [facility] Last Admin: 10/20/17 10:00 Dose: 100 mg Pantoprazole Sodium (Protonix -) 40 mg PO DAILY [facility] Last Admin: 10/20/17 10:00 Dose: 40 mg Solifenacin (Vesicare -) 5 mg PO DAILY [facility] Last Admin: 10/20/17 10:00 Dose: 5 mg Timolol Maleate (Timoptic 0.5%) 1 drop OU BID [facility] Last Admin: 10/20/17 10:00 Dose: 1 drop - Objective Vital Signs: Vital Signs Temperature 98 F 10/20/17 09:09 Pulse Rate 96 H 10/20/17 09:09 Respiratory Rate 18 10/20/17 09:09 Blood Pressure 116/70 10/20/17 09:09 O2 Sat by Pulse Oximetry (%) 95 10/20/17 09:00 Constitutional: Yes: No Distress, Calm Cardiovascular: Yes: Regular Rate and Rhythm Respiratory: Yes: Regular Gastrointestinal: Yes: Normal Bowel Sounds, Soft Extremities: Yes: Other (Lt foot/ankle minimal erythema, no pain) Neurological: Yes: Alert, Oriented Labs: CBC, BMP 10/18/17 06:41 10/18/17 06:47 Assessment/Plan Lt foot/ankle swelling - clinically improved cellulitis vs gout --stable off antibiotics continue monitor
[2017-10-20] MEDS ORDERED: traMADol HCL 50 MG TABLET PO PRN (14:50)
--- NOTE | 2017-10-20 18:58 | PN ---
Physical Exam: SUBJECTIVE: Patient seen and examined. Comfortable, denies pain. Feels better. OBJECTIVE: Vital Signs Period Temp Pulse Resp BP Sys/[place] Pulse Ox Last 24 Hr 97.3 F-98.2 F 76-98 18-18 116-158/70-97 95-95 GENERAL: The patient is awake, alert, and fully oriented, in no acute distress. HEAD: Normal with no signs of trauma. EYES: PERRL, extraocular movements intact, sclera anicteric, conjunctiva clear. No ptosis. ENT: Ears normal, nares patent, oropharynx clear without exudates, moist mucous membranes. NECK: Trachea midline, full range of motion, supple. LUNGS: Breath sounds equal, clear to auscultation bilaterally, no wheezes, no crackles, no accessory muscle use. HEART: Regular rate and rhythm ABDOMEN: Soft, nontender, nondistended, normoactive bowel sounds, no guarding, no rebound, no hepatosplenomegaly, no masses. EXTREMITIES: left ankle edema + gout NEUROLOGICAL: Normal speech, gait not observed. PSYCH: Normal mood, normal affect. Active Medications Generic Name Dose Route Start Last Admin Trade Name Freq PRN Reason Stop Dose Admin Apixaban 5 mg 10/17/17 22:00 10/20/17 10:00 Eliquis - PO 5 mg BID [facility] Administration Aspirin 81 mg 10/18/17 10:00 10/20/17 10:00 Asa - PO 81 mg DAILY [facility] Administration Atorvastatin Calcium 20 mg 10/17/17 22:00 10/19/17 21:32 Lipitor - PO 20 mg HS DOM Administration Brimonidine Tartrate 1 drop 10/17/17 22:00 10/20/17 09:59 Alphagan 0.2% - OU 1 drop BID [facility] Administration Cholecalciferol 1,000 unit 10/18/17 10:00 10/20/17 10:00 Vitamin D3 - PO 1,000 unit DAILY [facility] Administration Cyanocobalamin 100 mcg 10/18/17 10:00 10/20/17 10:01 Vitamin B12 - PO 100 mcg DAILY [facility] Administration Furosemide 20 mg 10/18/17 10:00 10/20/17 10:00 Lasix - PO 20 mg DAILY [facility] Administration Latanoprost 1 drop 10/17/17 22:00 10/19/17 21:31 Xalatan 0.005% Eye Drops - OU 1 drop HS [facility] Administration Levothyroxine Sodium 150 mcg 10/18/17 07:00 10/20/17 06:10 Synthroid - PO 150 mcg 0700 DOM Administration Lisinopril 10 mg 10/18/17 10:00 10/20/17 10:00 Prinivil PO 10 mg DAILY [facility] Administration Metoprolol Succinate 100 mg 10/17/17 22:00 10/20/17 10:00 Toprol Xl - PO 100 mg BID DOM Administration Pantoprazole Sodium 40 mg 10/18/17 10:00 10/20/17 10:00 Protonix - PO 40 mg DAILY [facility] Administration Solifenacin 5 mg 10/18/17 10:00 10/20/17 10:00 Vesicare - PO 5 mg DAILY [facility] Administration Timolol Maleate 1 drop 10/17/17 22:00 10/20/17 10:00 Timoptic 0.5% OU 1 drop BID [facility] Administration Tramadol HCl 50 mg 10/20/17 14:50 Ultram - PO Q8H PRN PAIN LEVEL 7 - 10 ASSESSMENT/PLAN: Patient is a 72 year old male with a significant past medical history of atrial fibrillation (on eliquis), hypertension, COPD, depression and hypothyoridism. She presents to the ED with left ankle pain and the inability to ambulate secondary to pain. Muscular/Skeletal: Left Ankle Pain, improved Acute gout likely as symptoms improved on a one time dose of colchicine vs. cellulitis. She reports left pain, and able to participate in physical therapy (ambulated 100 feet) . Uric acids to be checked as an outpatient. Monitor off antibiotics , remains afebrile. She is medically cleared for discharge but awaiting her facility to accept her back. Unable to accept patient back on a weekend. Discharge tomorrow. Other medical problems: COPD, chronic. Tolerating room air, in no acute exacerbation. No wheezing. Hypertension, chronic/controlled. Monitor BP Depression, chronic Hypothyroidism, on Synthroid Afib, on eliquis F.E.N. Fluids: tolerarting PO Electrolytes: monitor Nutrition: low salt Prophy: DVT: on eliquis GI; deferred full code Visit type - Emergency Visit Emergency Visit: Yes ED Registration Date: 10/17/17 Care time: The patient presented to the Emergency Department on the above date and was hospitalized for further evaluation of their emergent condition. - New Patient This patient is new to me today: No - Critical Care Critical Care patient: No - Discharge Referral Referred to [facility] No
[2017-10-20] MEDS: ATORVASTATIN CA 20 MG TABLET (FP) PO SCH (21:26)
[2017-10-20] MEDS: LATANOPROST 0.005% OPHTH SOLN 2.5ML BOTTLE OU SCH (21:27)
[2017-10-21] MEDS: LEVOTHYROXINE NA 150 MCG TABLET PO SCH (06:10)
--- NOTE | 2017-10-21 09:25 | DS ---
Physical Exam: SUBJECTIVE: Patient seen and examined OBJECTIVE: Vital Signs Period Temp Pulse Resp BP Sys/[place] Pulse Ox Last 24 Hr 97.3 F-97.9 F 60-76 18-20 131-153/71-78 95-95 PHYSICAL EXAM GENERAL: The patient is awake, alert, and fully oriented, in no acute distress. HEAD: Normal with no signs of trauma. EYES: PERRL, extraocular movements intact, sclera anicteric, conjunctiva clear. ENT: Ears normal, nares patent, oropharynx clear without exudates, moist mucous membranes. NECK: Trachea midline, full range of motion, supple. LUNGS: Breath sounds equal, clear to auscultation bilaterally, no wheezes, no crackles, no accessory muscle use. HEART: Regular rate and rhythm, S1, S2 without murmur, rub or gallop. ABDOMEN: Soft, nontender, nondistended, normoactive bowel sounds, no guarding, no rebound, no hepatosplenomegaly, no masses. EXTREMITIES: 2+ pulses, warm, well-perfused, no edema. NEUROLOGICAL: Cranial nerves II through XII grossly intact. Normal speech, gait not observed. PSYCH: Normal mood, normal affect. SKIN: Warm, dry, normal turgor, no rashes or lesions noted. LABS HOSPITAL COURSE: Date of Admission:10/17/17 Date of Discharge: 10/21/17 72yo F wt PMH afib on eliquis, HTN, COPD, depression, hypothyroid presented to the ER wtih L ankle pain and inability to ambulate due to the pain 1. L ankle pain- liekly acute gout as symptoms improved after cochicine x1. received additional dose today. will stop as pain has resolved. advised on gout approved diet. should have uric acid levels checked in a few weeks to evaluate if she would benefit from prophylactic treatment. ambulated 100ft with PT today 2. Afib on eliquis- cont current management 3. HTn- controlled 4. COPD 5. Depression 6. hypothyroid- cont LT4 7. DVT ppx- eliquis 8. pt is medically optimized and cleared for discharge today. SW called facility to send back but facility refusing to take back over the weekend. pt will remain hospitalized till Saturday. Discharge Summary Reason For Visit: CELLULITIS Current Active Problems Cellulitis (Acute) Condition: Stable - Instructions - Home Medications Comprehensive Discharge Medication List: Ambulatory Orders Apixaban [Eliquis] 5 mg PO BID 10/17/17 Aspirin [ASA -] 81 mg PO DAILY 10/17/17 Brimonidine Tartrate/Timolol [Combigan Eye Drops] 1 drop OU HS 10/17/17 Cholecalciferol (Vitamin D3) [Vitamin D3] 1,000 unit PO DAILY 10/17/17 Cyanocobalamin [Vitamin B12 -] 100 mcg PO DAILY 10/17/17 Furosemide [Lasix] 20 mg PO DAILY 10/17/17 Latanoprost 0.005% Eye Drops [Xalatan 0.005% Eye Drops -] 1 drop HS 10/17/17 Levothyroxine Sodium [Levoxyl] 150 mcg PO DAILY 10/17/17 Lisinopril [Prinivil] 10 mg PO DAILY 10/17/17 Metoprolol Succinate [Toprol Xl] 100 mg PO Q12H 10/17/17 Oxybutynin Chloride [Ditropan Xl] 5 mg PO DAILY 10/17/17 Pantoprazole Sodium [Protonix] 40 mg PO DAILY 10/17/17 Simvastatin [Zocor -] 40 mg PO HS 10/17/17 - Discharge Referral Referred to [facility] No
[2017-10-21] MEDS: APIXABAN 5 MG TABLET PO SCH (09:42)
[2017-10-21] MEDS: PANTOPRAZOLE 40 MG TABLET (FP) PO SCH (09:42)
[2017-10-21] MEDS: FUROSEMIDE 20 MG TABLET (FP) PO SCH (09:42)
[2017-10-21] MEDS: CYANOCOBALAMIN (VITAMIN B-12) 100 MCG TABLET PO SCH (09:42)
[2017-10-21] MEDS: LISINOPRIL 10 MG TABLET (FP) PO SCH (09:43)
[2017-10-21] MEDS: SOLIFENACIN SUCCINATE 5 MG TAB (FP) PO SCH (09:43)
[2017-10-21] MEDS: ASPIRIN 81 MG CHEWABLE TABLETS PO SCH (09:43)
[2017-10-21] MEDS: CHOLECALCIFEROL (VITAMIN D3) 1,000 UNIT TABLET (FP) PO SCH (09:43)
[2017-10-21] MEDS: TIMOLOL 0.5% OPHTHALMIC SOL 5 ML BOTTLE OU SCH (09:43)
[2017-10-21] MEDS: BRIMONIDINE TARTRATE 0.2% OPHTHALMIC 5 ML BOTTLE OU SCH (09:44)
--- NOTE | 2017-10-21 13:11 | PN ---
Progress Note, Physician History of Present Illness: stable no new issues - Current Medication List Current Medications: Active Medications Apixaban (Eliquis -) 5 mg PO BID [facility] Last Admin: 10/21/17 09:42 Dose: 5 mg Aspirin (Asa -) 81 mg PO DAILY [facility] Last Admin: 10/21/17 09:43 Dose: 81 mg Atorvastatin Calcium (Lipitor -) 20 mg PO HS [facility] Last Admin: 10/20/17 21:26 Dose: 20 mg Brimonidine Tartrate (Alphagan 0.2% -) 1 drop OU BID [facility] Last Admin: 10/21/17 09:44 Dose: 1 drop Cholecalciferol (Vitamin D3 -) 1,000 unit PO DAILY [facility] Last Admin: 10/21/17 09:43 Dose: 1,000 unit Cyanocobalamin (Vitamin B12 -) 100 mcg PO DAILY [facility] Last Admin: 10/21/17 09:42 Dose: 100 mcg Furosemide (Lasix -) 20 mg PO DAILY [facility] Last Admin: 10/21/17 09:42 Dose: 20 mg Latanoprost (Xalatan 0.005% Eye Drops -) 1 drop OU [facility] Last Admin: 10/20/17 21:27 Dose: 1 drop Levothyroxine Sodium (Synthroid -) 150 mcg PO 0700 [facility] Last Admin: 10/21/17 06:10 Dose: 150 mcg Lisinopril (Prinivil) 10 mg PO DAILY [facility] Last Admin: 10/21/17 09:43 Dose: 10 mg Metoprolol Succinate (Toprol Xl -) 100 mg PO BID [facility] Last Admin: 10/21/17 09:43 Dose: 100 mg Pantoprazole Sodium (Protonix -) 40 mg PO DAILY [facility] Last Admin: 10/21/17 09:42 Dose: 40 mg Solifenacin (Vesicare -) 5 mg PO DAILY [facility] Last Admin: 10/21/17 09:43 Dose: 5 mg Timolol Maleate (Timoptic 0.5%) 1 drop OU BID [facility] Last Admin: 10/21/17 09:43 Dose: 1 drop Tramadol HCl (Ultram -) 50 mg PO Q8H PRN PRN Reason: PAIN LEVEL 7 - 10 Last Admin: 10/20/17 21:37 Dose: 50 mg - Objective Vital Signs: Vital Signs Temperature 97.9 F 10/21/17 09:29 Pulse Rate 73 10/21/17 09:29 Respiratory Rate 18 10/21/17 09:29 Blood Pressure 140/76 10/21/17 09:29 O2 Sat by Pulse Oximetry (%) 93 L 10/21/17 09:00 Constitutional: Yes: No Distress, Calm Cardiovascular: Yes: Regular Rate and Rhythm Respiratory: Yes: Regular, CTA Bilaterally Gastrointestinal: Yes: Normal Bowel Sounds, Soft Musculoskeletal: Yes: Other Extremities: Yes: Other Neurological: Yes: Alert, Oriented Psychiatric: Yes: Alert, Oriented Labs: CBC, BMP 10/18/17 06:41 10/18/17 06:47 Assessment/Plan 72 year old female with PMHx of a.fib (on Eliquis), HTN, COPD, depression, hypothyroidism, who presented to the ED with left ankle erythema and pain and inability to ambulate for 2 days. 1) Left ankle swelling, slight edema - Cellulitis vs. gout 2) A.fib 3) Hypothyroidism 4) HTN 5) Hyperlipidemia plan continue routine care rest as per the team movement of the foot normal toes movement normal
[2017-10-21 15:14] VITALS: BP 147/73; PULSE 78; TEMP 97.8
== END 2017-10-21 16:21 ==
LOC: JER 10:53 → JERBED 14:48 → J5S 18:09
PROVIDERS: ADMIT Internal Medicine; ATTEND Nurse Practitioner Acute Care
DX: M25.472 Effusion, left ankle (principal); I10 Essential (primary) hypertension; I48.91 Unspecified atrial fibrillation; E78.5 Hyperlipidemia, unspecified; E03.9 Hypothyroidism, unspecified; J44.9 Chronic obstructive pulmonary disease, unspecified; F32.9 Major depressive disorder, single episode, unspecified; H40.9 Unspecified glaucoma; Z87.891 Personal history of nicotine dependence; Z79.01 Long term (current) use of anticoagulants; Z79.82 Long term (current) use of aspirin
CPT/HCPCS: 36415; 73610-TC-LT-FY; 73630-TC-LT; 80053; 83605; 84550; 85025; 85027; 87040; 93971-TC; 96365; 96368; 96375; 97116-GP; 97161-GP; 99282-25; G0378

== ENCOUNTER 2018-01-30 15:42 | Emergency (ER) | payer OTHER ==
--- NOTE | 2018-01-30 16:23 | PDOC ---
History of Present Illness - General History Source: Patient Exam Limitations: No Limitations - History of Present Illness Initial Comments: 01/30/18 17:02 The patient is a 72-year-old female living at [facility], with a past medical history of a-fib (on Eliquis), HTN, HLD, glaucoma, thyroid disease, and graves disease, who presents to the ED with elevated calcium levels since Saturday 01/27. The patient visited her PCPs on Saturday to obtain clearance for her cataract surgery but was noted to have elevated calcium levels and a possible parathyroid issue. Patient was advised to go to the ER for further evaluation. The patient denies any fever, chills, nausea, vomiting, diarrhea, constipation, or abdominal pain. Denies chest pain, shortness of breath, headache and dizziness. Denies dysuria, frequency, urgency, hesitancy, and hematuria. Denies any lower extremity swelling. Denies any muscle or bone aches. Allergies: NKA Surgical history: None reported. Social history: Former smoker. PCP: Dr. Nikolas Buck <Nikki Pierce - Last Filed: 01/30/18 17:10> <Syl Moralez - Last Filed: 01/30/18 18:51> - General Stated Complaint: Revisit, Lab Variance Time Seen by Provider: 01/30/18 16:23 Past History <Nikki Pierce - Last Filed: 01/30/18 17:10> - Past Medical History Anemia: No Asthma: No Cancer: No Cardiac Disorders: Yes (afib) CVA: No COPD: No Dementia: No Diabetes: No GI Disorders: No Disorders: No HTN: Yes Hypercholesterolemia: Yes Liver Disease: No Seizures: No Thyroid Disease: Yes - Surgical History Abdominal Surgery: No Cardiac Surgery: No Lung Surgery: No Neurologic Surgery: No - Suicide/Smoking/Psychosocial Hx Smoking History: Former smoker Have you smoked in the past 12 months: No Hx Alcohol Use: No Drug/Substance Use Hx: No Substance Use Type: None Hx Substance Use Treatment: No <Syl Moralez - Last Filed: 01/30/18 18:51> - Past Medical History Allergies/Adverse Reactions: Allergies Allergy/AdvReac Type Severity Reaction Status Date / Time No Known Allergies Allergy Verified 10/17/17 11:11 Home Medications: Ambulatory Orders Apixaban [Eliquis] 5 mg PO BID 10/17/17 Aspirin [ASA -] 81 mg PO DAILY 10/17/17 Brimonidine Tartrate/Timolol [Combigan 0.2%-0.5% Eye Drops] 1 drop OU HS Cholecalciferol (Vitamin D3) [Vitamin D3] 1,000 unit PO DAILY 10/17/17 Cyanocobalamin [Vitamin B12 -] 100 mcg PO DAILY 10/17/17 Furosemide [Lasix] 20 mg PO DAILY 10/17/17 Latanoprost 0.005% Eye Drops [Xalatan 0.005% Eye Drops -] 1 drop HS 10/17/17 Levothyroxine Sodium [Levoxyl] 150 mcg PO DAILY 10/17/17 Lisinopril [Prinivil] 10 mg PO DAILY 10/17/17 Metoprolol Succinate [Toprol Xl] 100 mg PO Q12H 10/17/17 Oxybutynin Chloride [Ditropan Xl] 5 mg PO DAILY 10/17/17 Pantoprazole Sodium [Protonix] 40 mg PO DAILY 10/17/17 Simvastatin [Zocor -] 40 mg PO HS 10/17/17 Review of Systems - Review of Systems Able to Perform ROS?: Yes Comments:: 01/30/18 17:09 GENERAL/CONSTITUTIONAL: No fever or chills. No weakness. HEAD, EYES, EARS, NOSE AND THROAT: No change in vision. No ear pain or discharge. No sore throat. CARDIOVASCULAR: No chest pain or shortness of breath. RESPIRATORY: No cough, wheezing, or hemoptysis. GASTROINTESTINAL: No nausea, vomiting, diarrhea or constipation. GENITOURINARY: No dysuria, frequency, or change in urination. MUSCULOSKELETAL: No joint or muscle swelling or pain. No neck or back pain. SKIN: No rash NEUROLOGIC: No headache, vertigo, loss of consciousness, or change in strength/ sensation. ENDOCRINE: No increased thirst. No abnormal weight change. HEMATOLOGIC/LYMPHATIC: No anemia, easy bleeding, or history of blood clots. ALLERGIC/IMMUNOLOGIC: No hives or skin allergy. <Nikki Pierce - Last Filed: 01/30/18 17:10> *Physical Exam - Vital Signs Last Vital Signs Temp Pulse Resp BP Pulse Ox 97.6 F 78 17 184/80 95 01/30/18 15:45 01/30/18 15:45 01/30/18 15:45 01/30/18 15:45 01/30/18 15:45 - Physical Exam Comments: 01/30/18 17:09 GENERAL: Awake, alert, and fully oriented, in no acute distress. HEAD: No signs of trauma EYES: PERRLA, EOMI, sclera anicteric, conjunctiva clear. No exophthalmos. ENT: (+)Dry mucus membranes. Auricles normal inspection, hearing grossly normal , nares patent, oropharynx clear without exudates. NECK: Normal ROM, supple, no lymphadenopathy, JVD, or masses LUNGS: Breath sounds equal, clear to auscultation bilaterally. No wheezes, and no crackles HEART: Regular rate and rhythm, normal S1 and S2, no murmurs, rubs or gallops ABDOMEN: Soft, nontender, normoactive bowel sounds. No guarding, no rebound. No masses EXTREMITIES: Normal range of motion, no edema. No clubbing or cyanosis. No cords, erythema, or tenderness NEUROLOGICAL: Cranial nerves II through XII grossly intact. Normal speech. SKIN: Warm, Dry, normal turgor, no rashes or lesions noted. No skin tenting. <Nikki Pierce - Last Filed: 01/30/18 17:10> Heart Score/ECG Review - ECG Intrepretation Comment:: 01/30/18 17:47 afib at 71 w LBBB, L axis, no acute st/t wave findings <Syl Moralez - Last Filed: 01/30/18 18:51> ED Treatment Course - LABORATORY CBC & Chemistry Diagram: 01/30/18 17:00 01/30/18 17:00 <Syl Moralez - Last Filed: 01/30/18 18:51> Medical Decision Making - Medical Decision Making 01/30/18 16:47 72yo female sent for abnl labs. Per the patient, who is a poor historian presents for "hypercalcemia" on outpt labs -was undergoing outpt pre-op screening for cataract sx and pmd saw elevated calcium on outpt labs -pt denies cp/sob/abd pain/psychatric issues -no constipation -no somatic complaints -pt appears dehydrated one exam -will recheck labs, will check pth, ekg -pt arrives hypotensive - will start ivf hydration -will monitor and reassess -pt arrives from [facility] 01/30/18 18:44 PTH is a send out lab - takes 3 days for results calcium 10.2 discussed labs with Almaz - her provider at assisted living stable for d/c to home pt without symptoms of elevated calcium <Syl Moralez - Last Filed: 01/30/18 18:51> *DC/Admit/Observation/Transfer - Attestations Scribe Attestion: 01/30/18 17:13 Documentation prepared by Nikki Pierce, acting as medical oncologist for Syl Moralez DO. <Nikki Pierce - Last Filed: 01/30/18 17:10> - Discharge Dispostion Decision to Admit order: No - Attestations Physician Attestion: 01/30/18 18:51 I, Dr. Syl Moralez, DO, attest that this document has been prepared under my direction and personally reviewed by me in its entirety. I further attest, that it accurately reflects all work, treatment, procedures and medical decision -making performed by me. <Syl Moralez - Last Filed: 01/30/18 18:51> Diagnosis at time of Disposition: Hypercalcemia - Discharge Dispostion Disposition: HOME Condition at time of disposition: Stable - Referrals Referrals: Nikolas Buck MD [Primary Care Provider] - - Patient Instructions Printed Discharge Instructions: DI for Hypercalcemia Additional Instructions: Your PTH is pending. Your calcium today was 10.2. Please follow up with your PMD. Please return to the ED with any further concerns or complaints. - Post Discharge Activity
[2018-01-30] MEDS ORDERED: SODIUM CHLORIDE 0.9% 1000 ML INFUS.BAG IV ONE ×2 (16:38)
[2018-01-30 16:45] VITALS: BMI 34.3
[2018-01-30 17:33] LABS: VENOUS PC02 43.7 mmHg (38-52); VENOUS PH 7.39 (7.32-7.42); VENOUS PO2 39.6 mmHg (28-48)
[2018-01-30 17:37] LABS: BASO % 0.8 % (0-2.0); HEMATOCRIT 41.2 % (32.4-45.2); HEMOGLOBIN 13.4 GM/dL (10.7-15.3); MCHC 32.6 g/dl (32.0-36.0); MEAN CELL VOLUME 85.9 fl (80-96); MEAN PLT VOLUME 7.7 fl (7.5-11.1); MONO % 8.5 % (3.8-10.2); NEUT % 63.7 % (42.8-82.8); PLATELET COUNT 221 K/MM3 (134-434); RDW 16.5 % (11.6-15.6); WHITE BLOOD COUNT 7.3 K/mm3 (4.0-10.0)
[2018-01-30 17:47] LABS: ALBUMIN 3.9 g/dl (3.4-5.0); ANION GAP 11 MMOL/L (8-16); BLOOD UREA NITROGEN 26 mg/dL (7-18); CALCIUM 10.2 mg/dL (8.5-10.1); CHLORIDE 107 mmol/L (98-107); CO2 23 mmol/L (21-32); CREATININE 1.1 mg/dL (0.55-1.3); GLUCOSE,RANDOM 108 mg/dL (74-106); SGPT/ALT 20 U/L (13-61); SODIUM 141 mmol/L (136-145)
[2018-01-30 17:49] LABS: ALK PHOS 132 U/L (45-117); BILIRUBIN,TOTAL 0.4 mg/dL (0.2-1.0); MAGNESIUM 2.3 mg/dL (1.8-2.4); POTASSIUM 4.6 mmol/L (3.5-5.1); SGOT/AST 25 U/L (15-37); TOT PROT 7.5 g/dl (6.4-8.2)
[2018-01-30 18:02] LABS: INR 1.37 (0.83-1.09); PROTHROMBIN TIME (PATIENT) 15.5 SEC (9.7-13.0)
[2018-01-30 22:00] VITALS: BP 146/70; PULSE 70; TEMP 97.7
--- NOTE | 2018-01-31 09:17 | EKG ---
Test Reason : Blood Pressure : / mmHG Vent. Rate : 071 BPM Atrial Rate : 070 BPM P-R Int : 000 ms QRS Dur : 170 ms QT Int : 446 ms P-R-T Axes : 000 -30 140 degrees QTc Int : 484 ms ATRIAL FIBRILLATION LEFT AXIS DEVIATION LEFT BUNDLE BRANCH BLOCK ABNORMAL ECG NO PREVIOUS ECGS AVAILABLE Confirmed by TAYA BLUNT MD ([id number]) on 01/31/2018 9:17:12 AM Referred By: Confirmed By:TAYA BLUNT MD
== END 2018-01-30 22:08 ==
LOC: JER 15:42
DX: E83.52 Hypercalcemia (principal); I48.91 Unspecified atrial fibrillation; Z79.01 Long term (current) use of anticoagulants; I10 Essential (primary) hypertension; H40.9 Unspecified glaucoma; E05.00 Thyrotoxicosis with diffuse goiter without thyrotoxic crisis or storm
CPT/HCPCS: 36415; 80053; 82550; 82803; 83605; 83735; 83880; 83970; 84443; 84484; 85025; 85610; 85730; 86850; 86900; 86901; 93005; 93010; 99282-25; J7030

== ENCOUNTER 2022-03-03 13:52 | Inpatient (IN) | payer OTHER ==
[2022-03-03 16:43] LABS: EPI CELLS 7 /uL (0-25.1); HYALINE CASTS 0 /uL (0-3.1); PH,URINE 5.5 (5.0-8.0); URINE APPEARANCE CLEAR; URINE BACTERIA 8596 /uL (0-1359); URINE BILIRUBIN NEGATIVE (NEGATIVE); URINE COLOR YELLOW; URINE GLUCOSE (UA) NEGATIVE (NEGATIVE); URINE KETONE NEGATIVE (NEGATIVE); URINE LEUK ESTERASE TRACE (NEGATIVE); URINE NITRITE POSITIVE (NEGATIVE); URINE PROTEIN NEGATIVE (NEGATIVE); URINE RBC 1 /uL (0-23.9); URINE UROBILINOGEN 0.2 mg/dL (0.2-1.0); URINE WBC 33 /uL (0-25.8)
[2022-03-03 16:53] LABS: VENOUS BASE EXCESS 3.4 mmol/L (-2-2); VENOUS O2 SATURATION 90.7 % (70-80); VENOUS PCO2 46.9 mmHg (38-52); VENOUS PH 7.406 (7.310-7.410)
[2022-03-03 17:07] LABS: BASO % 0.5 % (0-2.0); EOS % 0.9 % (0-4.5); HEMATOCRIT 36.9 % (32.4-45.2); LYMPH % 8.8 % (8-40); MCH 28.8 pg (25.7-33.7); MCHC 32.5 g/dl (32.0-36.0); MEAN CELL VOLUME 88.6 fl (80-96); MONO % 9.9 % (3.8-10.2); NEUT % 79.9 % (42.8-82.8); PLATELET COUNT 193 10^3/uL (134-434); RBC 4.16 M/mm3 (3.60-5.2); RDW 16.7 % (11.6-15.6); WHITE BLOOD COUNT 7.9 K/mm3 (4.0-10.0)
[2022-03-03] MEDS ORDERED: CEFTRIAXONE 1,000 MG in DEXTROSE 5%-WATER - 50 ML IVPB ONE (17:07)
[2022-03-03 17:31] LABS: ALBUMIN 3.8 g/dl (3.4-5.0); BLOOD UREA NITROGEN 19.5 mg/dL (7-18); MAGNESIUM 1.8 mg/dL (1.8-2.4)
[2022-03-03 17:34] LABS: CREATININE 1.1 mg/dL (0.55-1.3)
[2022-03-03 17:36] LABS: BILIRUBIN,TOTAL 0.9 mg/dL (0.2-1)
[2022-03-03] MEDS ORDERED: DEXAMETHASONE SOD PHOSPHATE 10 MG/1 ML VIAL IVPUSH ONE (17:52)
[2022-03-03] MEDS ORDERED: DEXAMETHASONE SOD PHOSPHATE 10 MG/1 ML VIAL ONE (17:55)
[2022-03-03] MEDS ORDERED: CEFTRIAXONE 1 GM/50 ML BAG ONE (17:55)
[2022-03-03] MEDS ORDERED: POTASSIUM CHLORIDE TABS 20 MEQ TABLET.ER (FP) PO ONE ×2 (18:29→18:53)
[2022-03-03 22:47] VITALS: RESP 18
[2022-03-03 23:30] LABS: INR 1.96 (0.83-1.09); PROTHROMBIN TIME (PATIENT) 22.7 SEC (9.7-13.0)
[2022-03-03 23:32] LABS: ACTIVATED PTT 39.8 SECONDS (25.2-36.5)
[2022-03-04] MEDS ORDERED: ALBUTEROL SO4 HFA INHALER IH PRN (05:35)
[2022-03-04] MEDS ORDERED: guaiFENesin/D-METHORPHAN HB 10 ML UNIT-DOSE CUPS PO PRN (05:35)
[2022-03-04] MEDS ORDERED: ACETAMINOPHEN 325 MG TABLET (FP) PO PRN (05:36)
[2022-03-04] MEDS: DEXAMETHASONE SOD PHOSPHATE 10 MG/1 ML VIAL IM SCH (09:22)
[2022-03-04] MEDS: PANTOPRAZOLE 40 MG TABLET PO SCH (09:48)
[2022-03-04] MEDS: APIXABAN 5 MG TABLET PO SCH ×2 (09:48→21:05)
[2022-03-04] MEDS: LEVOTHYROXINE NA 150 MCG TABLET PO SCH (09:48)
[2022-03-04] MEDS: FUROSEMIDE 20 MG TABLET (FP) PO SCH (09:48)
[2022-03-04] MEDS: POTASSIUM CHLORIDE TABS 20 MEQ TABLET.ER (FP) PO SCH (09:48)
[2022-03-04] MEDS: ASPIRIN 81 MG CHEWABLE TABLETS PO SCH (09:48)
[2022-03-04] MEDS: CYANOCOBALAMIN (VITAMIN B-12) 100 MCG TABLET PO SCH (09:48)
[2022-03-04] MEDS: LISINOPRIL 10 MG TABLET PO SCH (09:49)
[2022-03-04 11:10] LABS: BASO % 0.1 % (0-2.0); HEMOGLOBIN 12.3 GM/dL (10.7-15.3); LYMPH % 9.5 % (8-40); MCH 28.8 pg (25.7-33.7); MCHC 32.4 g/dl (32.0-36.0); MEAN CELL VOLUME 88.8 fl (80-96); MONO % 1.8 % (3.8-10.2); NEUT % 88.6 % (42.8-82.8); PLATELET COUNT 214 10^3/uL (134-434); RBC 4.28 M/mm3 (3.60-5.2); RDW 16.4 % (11.6-15.6)
[2022-03-04] MEDS: OXYBUTYNIN CHLORIDE 5 MG TABLET PO SCH (11:18)
[2022-03-04 11:24] LABS: BLOOD UREA NITROGEN 28.5 mg/dL (7-18)
[2022-03-04 11:27] LABS: CREATININE 1.2 mg/dL (0.55-1.3)
[2022-03-04] MEDS: CEFTRIAXONE 1 GM in DEXTROSE 5%-WATER - 50 ML IVPB SCH (14:07)
[2022-03-04] MEDS ORDERED: REMDESIVIR 200 MG in SODIUM CHLORIDE 250 ML IVPB ONE (15:00)
[2022-03-04] MEDS: BRIMONIDINE TARTRATE 0.2% OPHTHALMIC 5 ML BOTTLE OU SCH (21:05)
[2022-03-04] MEDS: LATANOPROST 0.005% OPHTH SOLN 2.5ML BOTTLE OS SCH (21:06)
[2022-03-04] MEDS: TIMOLOL 0.5% OPHTHALMIC SOL 5 ML BOTTLE OU SCH (21:06)
[2022-03-04] MEDS: ATORVASTATIN CA 20 MG TABLET (FP) PO SCH (21:07)
[2022-03-04] MEDS ORDERED: PATIENT'S OWN MEDICATION (NON-FORMULARY) (Brimonidine Tartrate/Timolol [Combigan 0.2%-0.5% OU SCH (22:00)
[2022-03-05] MEDS: LEVOTHYROXINE NA 150 MCG TABLET PO SCH (06:17)
[2022-03-05] MEDS: FUROSEMIDE 20 MG TABLET (FP) PO SCH (10:35)
[2022-03-05] MEDS: OXYBUTYNIN CHLORIDE 5 MG TABLET PO SCH (10:35)
[2022-03-05] MEDS: ASPIRIN 81 MG CHEWABLE TABLETS PO SCH (10:35)
[2022-03-05] MEDS: CYANOCOBALAMIN (VITAMIN B-12) 100 MCG TABLET PO SCH (10:35)
[2022-03-05] MEDS: LISINOPRIL 10 MG TABLET PO SCH (10:35)
[2022-03-05] MEDS: POTASSIUM CHLORIDE TABS 20 MEQ TABLET.ER (FP) PO SCH (10:36)
[2022-03-05] MEDS: PANTOPRAZOLE 40 MG TABLET PO SCH (10:36)
[2022-03-05] MEDS: APIXABAN 5 MG TABLET PO SCH ×2 (10:37→22:27)
[2022-03-05] MEDS: CEFTRIAXONE 1 GM in DEXTROSE 5%-WATER - 50 ML IVPB SCH (10:38)
[2022-03-05 12:04] LABS: BASO % 0.1 % (0-2.0); HEMATOCRIT 36.8 % (32.4-45.2); HEMOGLOBIN 11.8 GM/dL (10.7-15.3); MCH 28.3 pg (25.7-33.7); MCHC 31.9 g/dl (32.0-36.0); MEAN CELL VOLUME 88.6 fl (80-96); MEAN PLT VOLUME 7.5 fl (7.5-11.1); MONO % 7.4 % (3.8-10.2); NEUT % 81.5 % (42.8-82.8); PLATELET COUNT 238 10^3/uL (134-434); RBC 4.15 M/mm3 (3.60-5.2); RDW 16.8 % (11.6-15.6); WHITE BLOOD COUNT 16.5 K/mm3 (4.0-10.0)
[2022-03-05 12:22] LABS: CALCIUM 9.3 mg/dL (8.5-10.1)
[2022-03-05 12:23] LABS: BLOOD UREA NITROGEN 41.8 mg/dL (7-18)
[2022-03-05 12:26] LABS: CREATININE 1.2 mg/dL (0.55-1.3)
[2022-03-05] MEDS: DEXAMETHASONE SOD PHOSPHATE 10 MG/1 ML VIAL IM SCH (13:36)
[2022-03-05] MEDS: DEXAMETHASONE 4 MG TABLET (FP) PO SCH (13:40)
[2022-03-05] MEDS: REMDESIVIR 100 MG in SODIUM CHLORIDE 250 ML IVPB SCH (15:08)
[2022-03-05] MEDS: ATORVASTATIN CA 20 MG TABLET (FP) PO SCH (22:27)
[2022-03-06] MEDS: LATANOPROST 0.005% OPHTH SOLN 2.5ML BOTTLE OS SCH (00:02)
[2022-03-06] MEDS: TIMOLOL 0.5% OPHTHALMIC SOL 5 ML BOTTLE OU SCH (00:02)
[2022-03-06] MEDS: BRIMONIDINE TARTRATE 0.2% OPHTHALMIC 5 ML BOTTLE OU SCH (00:02)
[2022-03-06] MEDS: LEVOTHYROXINE NA 150 MCG TABLET PO SCH (06:13)
[2022-03-06] MEDS: FUROSEMIDE 20 MG TABLET (FP) PO SCH (09:31)
[2022-03-06] MEDS: CYANOCOBALAMIN (VITAMIN B-12) 100 MCG TABLET PO SCH (09:31)
[2022-03-06] MEDS: OXYBUTYNIN CHLORIDE 5 MG TABLET PO SCH (09:31)
[2022-03-06] MEDS: PANTOPRAZOLE 40 MG TABLET PO SCH (09:31)
[2022-03-06] MEDS: LISINOPRIL 10 MG TABLET PO SCH (09:31)
[2022-03-06] MEDS: APIXABAN 5 MG TABLET PO SCH (09:31)
[2022-03-06] MEDS: DEXAMETHASONE 4 MG TABLET (FP) PO SCH (09:31)
[2022-03-06] MEDS: ASPIRIN 81 MG CHEWABLE TABLETS PO SCH (09:31)
[2022-03-06] MEDS: DEXAMETHASONE SOD PHOSPHATE 10 MG/1 ML VIAL IM SCH (09:32)
[2022-03-06] MEDS: POTASSIUM CHLORIDE TABS 20 MEQ TABLET.ER (FP) PO SCH (09:32)
[2022-03-06] MEDS: CEFTRIAXONE 1 GM in DEXTROSE 5%-WATER - 50 ML IVPB SCH (09:32)
[2022-03-06 11:47] LABS: BASO % 0.1 % (0-2.0); HEMATOCRIT 37.8 % (32.4-45.2); HEMOGLOBIN 12.2 GM/dL (10.7-15.3); LYMPH % 11.4 % (8-40); MCH 28.5 pg (25.7-33.7); MCHC 32.4 g/dl (32.0-36.0); MEAN CELL VOLUME 88.1 fl (80-96); MEAN PLT VOLUME 7.6 fl (7.5-11.1); MONO % 3.8 % (3.8-10.2); NEUT % 84.7 % (42.8-82.8); PLATELET COUNT 239 10^3/uL (134-434); RBC 4.29 M/mm3 (3.60-5.2); RDW 17.1 % (11.6-15.6); WHITE BLOOD COUNT 12.3 K/mm3 (4.0-10.0)
[2022-03-06 12:08] LABS: CALCIUM 9.9 mg/dL (8.5-10.1)
[2022-03-06 12:11] LABS: BLOOD UREA NITROGEN 38.4 mg/dL (7-18)
[2022-03-06 12:12] LABS: CREATININE 1.2 mg/dL (0.55-1.3)
[2022-03-06 14:50] VITALS: BP 150/99; PULSE 72; TEMP 98
[2022-03-06] MEDS: REMDESIVIR 100 MG in SODIUM CHLORIDE 250 ML IVPB SCH (15:01)
== END 2022-03-06 18:48 | disposition home or self-care (01) | DRG 177 ==
LOC: JER 13:52 → JERBED 17:56 → J6S 23:36
PROVIDERS: ADMIT Internal Medicine; ATTEND Internal Medicine
PROC: XW033E5 Introduction of Remdesivir Anti-infective into Peripheral Vein, Percutaneous Approach, New Technology Group 5 (ICD-10-PCS; principal; 2022-03-04)
DX: U07.1 COVID-19 (principal); J12.82 Pneumonia due to coronavirus disease 2019; J96.01 Acute respiratory failure with hypoxia; N39.0 Urinary tract infection, site not specified; I48.91 Unspecified atrial fibrillation; Z79.01 Long term (current) use of anticoagulants; I10 Essential (primary) hypertension; E78.5 Hyperlipidemia, unspecified; H40.9 Unspecified glaucoma; J44.9 Chronic obstructive pulmonary disease, unspecified; E03.9 Hypothyroidism, unspecified; F32.A Depression, unspecified; E87.6 Hypokalemia; E05.90 Thyrotoxicosis, unspecified without thyrotoxic crisis or storm
CPT/HCPCS: 0241U-QW; 36415; 71045-TC-FY; 80048; 80053; 81003; 82728; 82803; 83615; 83735; 84436; 84443; 84479; 84484; 85025; 85610; 85730; 86140; 87086; 87186; 93005; 93010; 94010; 94761; 99285-25; C9399; J1100

== ENCOUNTER 2022-04-04 09:08 | Inpatient (IN) | payer OTHER ==
[2022-04-04] MEDS ORDERED: methylPREDNISolone NA SUCC 125 MG/2 ML VIAL IVPUSH ONE (09:22)
[2022-04-04] MEDS ORDERED: ALBUTEROL SO4 2.5/IPRATROPIUM 0.5 INH SOL 3 ML VIAL.NEB. NEB ONE (09:30)
[2022-04-04] MEDS ORDERED: methylPREDNISolone NA SUCC 125 MG/2 ML VIAL ONE (09:31)
[2022-04-04 09:39] VITALS: BMI 36.0
[2022-04-04] MEDS: ALBUTEROL SO4 2.5/IPRATROPIUM 0.5 INH SOL 3 ML VIAL.NEB. NEB SCH (09:39)
[2022-04-04 10:39] LABS: BASO % 0.3 % (0-2.0); EOS % 0.1 % (0-4.5); HEMATOCRIT 36.2 % (32.4-45.2); HEMOGLOBIN 12.1 GM/dL (10.7-15.3); LYMPH % 7.9 % (8-40); MCH 29.7 pg (25.7-33.7); MCHC 33.5 g/dl (32.0-36.0); MEAN CELL VOLUME 88.8 fl (80-96); MEAN PLT VOLUME 7.2 fl (7.5-11.1); MONO % 7.9 % (3.8-10.2); NEUT % 83.8 % (42.8-82.8); PLATELET COUNT 232 10^3/uL (134-434); RBC 4.08 M/mm3 (3.60-5.2); RDW 17.8 % (11.6-15.6); WHITE BLOOD COUNT 12.3 K/mm3 (4.0-10.0)
[2022-04-04 10:42] LABS: VENOUS O2 SATURATION 89.6 % (70-80); VENOUS PH 7.392 (7.310-7.410)
[2022-04-04 10:44] LABS: INR 2.48 (0.83-1.09); PROTHROMBIN TIME (PATIENT) 28.8 SEC (9.7-13.0)
[2022-04-04 10:47] LABS: ACTIVATED PTT 35.1 SECONDS (25.2-36.5)
[2022-04-04 11:00] LABS: CHLORIDE 108 mmol/L (98-107); MAGNESIUM 1.5 mg/dL (1.8-2.4); SODIUM 143 mmol/L (136-145)
[2022-04-04 11:03] LABS: ALBUMIN 3.5 g/dl (3.4-5.0); ANION GAP 12 MMOL/L (8-16); BLOOD UREA NITROGEN 16.7 mg/dL (7-18); CALCIUM 8.9 mg/dL (8.5-10.1); CO2 23 mmol/L (21-32); GLUCOSE,RANDOM 146 mg/dL (74-106)
[2022-04-04 11:04] LABS: PHOSPHOROUS 2.4 mg/dL (2.5-4.9)
[2022-04-04 11:06] LABS: SGPT/ALT 17 U/L (13-61)
[2022-04-04 11:07] LABS: SGOT/AST 23 U/L (15-37)
[2022-04-04 11:08] LABS: BILIRUBIN,TOTAL 1.8 mg/dL (0.2-1); TOT PROT 6.6 g/dl (6.4-8.2)
[2022-04-04 11:09] LABS: ALK PHOS 89 U/L (45-117)
[2022-04-04 11:11] LABS: N-TERMINAL BNP 32816.1 pg/ml (5-450)
[2022-04-04] MEDS ORDERED: FUROSEMIDE 40 MG/4 ML INJECTABLE VIAL IVPUSH ONE (11:16)
[2022-04-04] MEDS ORDERED: MAGNESIUM SULF 50% (8.12 MEQ/2 ML-1 GM VIAL) IVPB ONE (11:18)
[2022-04-04] MEDS ORDERED: CEFTRIAXONE 1 GM in DEXTROSE 5%-WATER - 50 ML IVPB ONE (11:19)
[2022-04-04] MEDS ORDERED: AZITHROMYCIN IVPB 500 MG in DEXTROSE 5%-WATER - 250 ML IVPB ONE (11:19)
[2022-04-04] MEDS ORDERED: MAGNESIUM SULFATE IN WATER 2 GM/50 ML IVPB IVPB ONE (11:23)
[2022-04-04] MEDS ORDERED: CEFTRIAXONE 1 GM/50 ML BAG ONE (11:23)
[2022-04-04] MEDS ORDERED: FUROSEMIDE 40 MG/4 ML INJECTABLE VIAL ONE (11:24)
[2022-04-04] MEDS ORDERED: AZITHROMYCIN IVPB 500 MG/250 ML BAG IVPB ONE (11:24)
[2022-04-04 17:21] LABS: VENOUS BASE EXCESS -2.8 mmol/L (-2-2); VENOUS O2 SATURATION 88.7 % (70-80); VENOUS PCO2 31.4 mmHg (38-52); VENOUS PH 7.433 (7.310-7.410)
[2022-04-04] MEDS ORDERED: POTASSIUM PHOSPHATE 30 MM in DEXTROSE 5%-WATER - 500 ML IVPB ONE (19:01)
[2022-04-04] MEDS ORDERED: ALBUTEROL SO4 HFA INHALER IH PRN (19:09)
[2022-04-04] MEDS ORDERED: ALBUTEROL SO4 2.5/IPRATROPIUM 0.5 INH SOL 3 ML VIAL.NEB. NEB PRN (19:09)
[2022-04-05] MEDS ORDERED: ALBUTEROL SO4 HFA INHALER IH PRN (09:16)
[2022-04-05] MEDS: AZITHROMYCIN IVPB 250 MG in DEXTROSE 5%-WATER - 250 ML IVPB SCH (10:12)
[2022-04-05] MEDS: CEFTRIAXONE 1 GM in DEXTROSE 5%-WATER - 50 ML IVPB SCH (10:13)
[2022-04-05] MEDS: PANTOPRAZOLE 40 MG TABLET PO SCH (10:15)
[2022-04-05] MEDS: LISINOPRIL 10 MG TABLET PO SCH (10:15)
[2022-04-05] MEDS: LEVOTHYROXINE NA 150 MCG TABLET PO SCH (10:15)
[2022-04-05] MEDS: methylPREDNISolone NA SUCC 40 MG/1 ML VIAL IVPUSH SCH ×2 (10:15→17:51)
[2022-04-05] MEDS: APIXABAN 5 MG TABLET PO SCH ×2 (10:15→22:17)
[2022-04-05] MEDS: ASPIRIN 81 MG CHEWABLE TABLETS PO SCH (10:15)
[2022-04-05] MEDS: SOLIFENACIN SUCCINATE 5 MG TAB PO SCH (11:55)
[2022-04-05] MEDS: TIMOLOL 0.5% OPHTHALMIC SOL 5 ML BOTTLE OU SCH (13:05)
[2022-04-05] MEDS: BRIMONIDINE TARTRATE 0.2% OPHTHALMIC 5 ML BOTTLE OU SCH (13:05)
[2022-04-05] MEDS: FUROSEMIDE 40 MG/4 ML INJECTABLE VIAL IVPB SCH (13:43)
[2022-04-05] MEDS: ALBUTEROL SO4 2.5/IPRATROPIUM 0.5 INH SOL 3 ML VIAL.NEB. NEB SCH ×2 (15:26→20:30)
[2022-04-05] MEDS ORDERED: TIMOLOL 0.5% OPHTHALMIC SOL 5 ML BOTTLE OU SCH (22:00)
[2022-04-05] MEDS ORDERED: BRIMONIDINE TARTRATE 0.2% OPHTHALMIC 5 ML BOTTLE OU SCH (22:00)
[2022-04-06] MEDS: methylPREDNISolone NA SUCC 40 MG/1 ML VIAL IVPUSH SCH ×3 (01:48→23:17)
[2022-04-06] MEDS: LEVOTHYROXINE NA 150 MCG TABLET PO SCH (06:25)
[2022-04-06] MEDS: ALBUTEROL SO4 2.5/IPRATROPIUM 0.5 INH SOL 3 ML VIAL.NEB. NEB SCH ×2 (08:53→13:40)
[2022-04-06 09:02] LABS: HEMATOCRIT 35.3 % (32.4-45.2); HEMOGLOBIN 11.6 GM/dL (10.7-15.3); MCH 29.3 pg (25.7-33.7); MCHC 32.9 g/dl (32.0-36.0); MEAN CELL VOLUME 89.2 fl (80-96); MEAN PLT VOLUME 7.4 fl (7.5-11.1); PLATELET COUNT 270 10^3/uL (134-434); RBC 3.95 M/mm3 (3.60-5.2); RDW 17.3 % (11.6-15.6); WHITE BLOOD COUNT 16.9 K/mm3 (4.0-10.0)
[2022-04-06 09:21] LABS: BLOOD UREA NITROGEN 39.8 mg/dL (7-18)
[2022-04-06 09:24] LABS: CREATININE 1.2 mg/dL (0.55-1.3)
[2022-04-06] MEDS: AZITHROMYCIN IVPB 250 MG in DEXTROSE 5%-WATER - 250 ML IVPB SCH (09:47)
[2022-04-06] MEDS: FUROSEMIDE 40 MG/4 ML INJECTABLE VIAL IVPB SCH (09:53)
[2022-04-06] MEDS: PANTOPRAZOLE 40 MG TABLET PO SCH (09:53)
[2022-04-06] MEDS: CEFTRIAXONE 1 GM in DEXTROSE 5%-WATER - 50 ML IVPB SCH (09:53)
[2022-04-06] MEDS: APIXABAN 5 MG TABLET PO SCH ×2 (09:53→22:55)
[2022-04-06] MEDS: BRIMONIDINE TARTRATE 0.2% OPHTHALMIC 5 ML BOTTLE OU SCH (09:54)
[2022-04-06] MEDS: ASPIRIN 81 MG CHEWABLE TABLETS PO SCH (09:54)
[2022-04-06] MEDS: LISINOPRIL 10 MG TABLET PO SCH (09:54)
[2022-04-06] MEDS: SOLIFENACIN SUCCINATE 5 MG TAB PO SCH (09:55)
[2022-04-06] MEDS: TIMOLOL 0.5% OPHTHALMIC SOL 5 ML BOTTLE OU SCH (09:55)
[2022-04-06] MEDS ORDERED: DOXYCYCLINE HYCLATE 100 MG CAPSULE PO SCH (10:00)
[2022-04-06 11:47] LABS: ANISOCYTOSIS 0; HELMET CELLS 0; HOWELL-JOLLY BODIES 0; MACROCYTOSIS 0; OVALOCYTE 0; ROULEAU 0; SICKELED CELLS 0; TARGET CELLS 0; TEAR DROP CELLS 0; TOXIC GRANULATION 0
[2022-04-06] MEDS ORDERED: methylPREDNISolone NA SUCC 40 MG/1 ML VIAL IVPUSH SCH (12:15)
[2022-04-06] MEDS ORDERED: LORazepam 2 MG/ML SDV VIAL IVPUSH PRN ×2 (16:55→20:48)
[2022-04-06] MEDS ORDERED: ALBUTEROL SO4 HFA INHALER IH PRN (20:48)
[2022-04-07] MEDS: LEVOTHYROXINE NA 75 MCG TABLET (FP) PO SCH (06:17)
[2022-04-07] MEDS: FUROSEMIDE 20 MG TABLET (FP) PO SCH (09:13)
[2022-04-07] MEDS: PANTOPRAZOLE 40 MG TABLET PO SCH (09:13)
[2022-04-07] MEDS: ASPIRIN COATED 81 MG TABLET.EC PO SCH (09:13)
[2022-04-07] MEDS: APIXABAN 5 MG TABLET PO SCH ×2 (09:13→21:26)
[2022-04-07] MEDS: CEFTRIAXONE 1 GM in DEXTROSE 5%-WATER - 50 ML IVPB SCH (09:13)
[2022-04-07] MEDS: SOLIFENACIN SUCCINATE 5 MG TAB PO SCH (09:14)
[2022-04-07] MEDS: BRIMONIDINE TARTRATE 0.2% OPHTHALMIC 5 ML BOTTLE OU SCH (09:14)
[2022-04-07] MEDS: LISINOPRIL 10 MG TABLET PO SCH (09:14)
[2022-04-07] MEDS: TIMOLOL 0.5% OPHTHALMIC SOL 5 ML BOTTLE OU SCH (09:14)
[2022-04-07] MEDS ORDERED: FUROSEMIDE 20 MG TABLET (FP) PO SCH (10:00)
[2022-04-07] MEDS: AZITHROMYCIN IVPB 250 MG in DEXTROSE 5%-WATER - 250 ML IVPB SCH ×2 (10:42→11:07)
[2022-04-07] MEDS: methylPREDNISolone NA SUCC 40 MG/1 ML VIAL IVPUSH SCH (12:18)
[2022-04-08] MEDS: methylPREDNISolone NA SUCC 40 MG/1 ML VIAL IVPUSH SCH ×2 (00:40→15:13)
[2022-04-08] MEDS: LEVOTHYROXINE NA 75 MCG TABLET (FP) PO SCH (06:06)
[2022-04-08] MEDS: AZITHROMYCIN IVPB 250 MG in DEXTROSE 5%-WATER - 250 ML IVPB SCH (09:49)
[2022-04-08] MEDS: PANTOPRAZOLE 40 MG TABLET PO SCH (09:55)
[2022-04-08] MEDS: ASPIRIN COATED 81 MG TABLET.EC PO SCH (09:55)
[2022-04-08] MEDS: SOLIFENACIN SUCCINATE 5 MG TAB PO SCH (09:56)
[2022-04-08] MEDS: APIXABAN 5 MG TABLET PO SCH ×2 (09:56→21:31)
[2022-04-08] MEDS: FUROSEMIDE 20 MG TABLET (FP) PO SCH (09:56)
[2022-04-08] MEDS: LISINOPRIL 10 MG TABLET PO SCH (09:56)
[2022-04-08] MEDS: BRIMONIDINE TARTRATE 0.2% OPHTHALMIC 5 ML BOTTLE OU SCH (09:57)
[2022-04-08] MEDS: TIMOLOL 0.5% OPHTHALMIC SOL 5 ML BOTTLE OU SCH (09:58)
[2022-04-08] MEDS: CEFTRIAXONE 1 GM in DEXTROSE 5%-WATER - 50 ML IVPB SCH (12:41)
[2022-04-09] MEDS: methylPREDNISolone NA SUCC 40 MG/1 ML VIAL IVPUSH SCH ×3 (01:52→23:33)
[2022-04-09] MEDS: LEVOTHYROXINE NA 75 MCG TABLET (FP) PO SCH (06:31)
[2022-04-09] MEDS: BRIMONIDINE TARTRATE 0.2% OPHTHALMIC 5 ML BOTTLE OU SCH (11:36)
[2022-04-09] MEDS: CEFTRIAXONE 1 GM in DEXTROSE 5%-WATER - 50 ML IVPB SCH (11:37)
[2022-04-09] MEDS: LISINOPRIL 10 MG TABLET PO SCH (11:38)
[2022-04-09] MEDS: APIXABAN 5 MG TABLET PO SCH ×2 (11:38→21:42)
[2022-04-09] MEDS: ASPIRIN COATED 81 MG TABLET.EC PO SCH (11:38)
[2022-04-09] MEDS: SOLIFENACIN SUCCINATE 5 MG TAB PO SCH (11:38)
[2022-04-09] MEDS: FUROSEMIDE 20 MG TABLET (FP) PO SCH (11:39)
[2022-04-09] MEDS: PANTOPRAZOLE 40 MG TABLET PO SCH (11:39)
[2022-04-09] MEDS: TIMOLOL 0.5% OPHTHALMIC SOL 5 ML BOTTLE OU SCH (11:40)
[2022-04-09] MEDS: AZITHROMYCIN IVPB 250 MG in DEXTROSE 5%-WATER - 250 ML IVPB SCH (13:29)
[2022-04-09 20:10] LABS: HEMATOCRIT 38.8 % (32.4-45.2); HEMOGLOBIN 12.3 GM/dL (10.7-15.3); MCH 28.1 pg (25.7-33.7); MCHC 31.7 g/dl (32.0-36.0); MEAN CELL VOLUME 88.8 fl (80-96); MEAN PLT VOLUME 7.4 fl (7.5-11.1); PLATELET COUNT 286 10^3/uL (134-434); RBC 4.37 M/mm3 (3.60-5.2); RDW 17.1 % (11.6-15.6)
[2022-04-09 20:31] LABS: CALCIUM 9.4 mg/dL (8.5-10.1)
[2022-04-09 20:32] LABS: ALBUMIN 2.9 g/dl (3.4-5.0)
[2022-04-09 20:35] LABS: CREATININE 1.3 mg/dL (0.55-1.3)
[2022-04-09 20:36] LABS: BILIRUBIN,TOTAL 0.4 mg/dL (0.2-1); TOT PROT 5.6 g/dl (6.4-8.2)
[2022-04-09 21:49] LABS: ANISOCYTOSIS 1+; MACROCYTOSIS 1+
[2022-04-10] MEDS: LEVOTHYROXINE NA 75 MCG TABLET (FP) PO SCH (06:18)
[2022-04-10 09:05] LABS: HEMATOCRIT 40.5 % (32.4-45.2); HEMOGLOBIN 13.3 GM/dL (10.7-15.3); MCH 28.6 pg (25.7-33.7); MCHC 32.8 g/dl (32.0-36.0); MEAN CELL VOLUME 87.2 fl (80-96); MEAN PLT VOLUME 7.3 fl (7.5-11.1); PLATELET COUNT 302 10^3/uL (134-434); RBC 4.65 M/mm3 (3.60-5.2); RDW 16.7 % (11.6-15.6); WHITE BLOOD COUNT 16.3 K/mm3 (4.0-10.0)
[2022-04-10] MEDS: FUROSEMIDE 20 MG TABLET (FP) PO SCH (09:15)
[2022-04-10] MEDS: SOLIFENACIN SUCCINATE 5 MG TAB PO SCH (09:15)
[2022-04-10] MEDS: PANTOPRAZOLE 40 MG TABLET PO SCH (09:15)
[2022-04-10] MEDS: APIXABAN 5 MG TABLET PO SCH ×2 (09:16→22:50)
[2022-04-10] MEDS: LISINOPRIL 10 MG TABLET PO SCH (09:16)
[2022-04-10] MEDS: ASPIRIN COATED 81 MG TABLET.EC PO SCH (09:16)
[2022-04-10] MEDS: CEFTRIAXONE 1 GM in DEXTROSE 5%-WATER - 50 ML IVPB SCH (09:17)
[2022-04-10 09:25] LABS: ALBUMIN 3.2 g/dl (3.4-5.0); CALCIUM 9.8 mg/dL (8.5-10.1)
[2022-04-10 09:26] LABS: BLOOD UREA NITROGEN 32.3 mg/dL (7-18)
[2022-04-10 09:29] LABS: CREATININE 1.1 mg/dL (0.55-1.3)
[2022-04-10 09:30] LABS: BILIRUBIN,TOTAL 0.7 mg/dL (0.2-1); TOT PROT 6.2 g/dl (6.4-8.2)
[2022-04-10] MEDS: BRIMONIDINE TARTRATE 0.2% OPHTHALMIC 5 ML BOTTLE OU SCH (09:37)
[2022-04-10] MEDS: TIMOLOL 0.5% OPHTHALMIC SOL 5 ML BOTTLE OU SCH (09:37)
[2022-04-10 11:16] LABS: ANISOCYTOSIS 0; HELMET CELLS 0; HOWELL-JOLLY BODIES 0; MACROCYTOSIS 0; OVALOCYTE 0; ROULEAU 0; SICKELED CELLS 0; TARGET CELLS 0; TEAR DROP CELLS 0; TOXIC GRANULATION 0
[2022-04-10] MEDS: AZITHROMYCIN IVPB 250 MG in DEXTROSE 5%-WATER - 250 ML IVPB SCH (11:19)
[2022-04-10] MEDS: AMOX TR/POT CLAV 875MG/125MG TABLETS (FP) PO SCH (16:53)
[2022-04-11] MEDS: LEVOTHYROXINE NA 75 MCG TABLET (FP) PO SCH (06:54)
[2022-04-11] MEDS: AMOX TR/POT CLAV 875MG/125MG TABLETS (FP) PO SCH ×2 (08:46→19:31)
[2022-04-11] MEDS: predniSONE 20 MG TABLET (UD) PO SCH (09:37)
[2022-04-11] MEDS: ASPIRIN COATED 81 MG TABLET.EC PO SCH (09:37)
[2022-04-11] MEDS: APIXABAN 5 MG TABLET PO SCH ×2 (09:37→23:12)
[2022-04-11] MEDS: LISINOPRIL 10 MG TABLET PO SCH (09:37)
[2022-04-11] MEDS: PANTOPRAZOLE 40 MG TABLET PO SCH (09:38)
[2022-04-11] MEDS: FUROSEMIDE 20 MG TABLET (FP) PO SCH (09:38)
[2022-04-11] MEDS: SOLIFENACIN SUCCINATE 5 MG TAB PO SCH (09:38)
[2022-04-11] MEDS: BRIMONIDINE TARTRATE 0.2% OPHTHALMIC 5 ML BOTTLE OU SCH (09:40)
[2022-04-11] MEDS: TIMOLOL 0.5% OPHTHALMIC SOL 5 ML BOTTLE OU SCH (09:41)
[2022-04-12] MEDS: LEVOTHYROXINE NA 75 MCG TABLET (FP) PO SCH (07:05)
[2022-04-12] MEDS: AMOX TR/POT CLAV 875MG/125MG TABLETS (FP) PO SCH ×2 (09:34→16:33)
[2022-04-12] MEDS: SOLIFENACIN SUCCINATE 5 MG TAB PO SCH (09:34)
[2022-04-12] MEDS: FUROSEMIDE 20 MG TABLET (FP) PO SCH (09:34)
[2022-04-12] MEDS: predniSONE 20 MG TABLET (UD) PO SCH (09:34)
[2022-04-12] MEDS: ASPIRIN COATED 81 MG TABLET.EC PO SCH (09:35)
[2022-04-12] MEDS: APIXABAN 5 MG TABLET PO SCH ×2 (09:35→21:03)
[2022-04-12] MEDS: PANTOPRAZOLE 40 MG TABLET PO SCH (09:35)
[2022-04-12] MEDS: LISINOPRIL 10 MG TABLET PO SCH (09:35)
[2022-04-12] MEDS: TIMOLOL 0.5% OPHTHALMIC SOL 5 ML BOTTLE OU SCH (09:44)
[2022-04-12] MEDS: BRIMONIDINE TARTRATE 0.2% OPHTHALMIC 5 ML BOTTLE OU SCH (09:44)
[2022-04-13] MEDS: LEVOTHYROXINE NA 75 MCG TABLET (FP) PO SCH (06:07)
[2022-04-13] MEDS: AMOX TR/POT CLAV 875MG/125MG TABLETS (FP) PO SCH ×2 (08:16→17:22)
[2022-04-13] MEDS: FUROSEMIDE 20 MG TABLET (FP) PO SCH (09:10)
[2022-04-13] MEDS: ASPIRIN COATED 81 MG TABLET.EC PO SCH (09:10)
[2022-04-13] MEDS: SOLIFENACIN SUCCINATE 5 MG TAB PO SCH (09:10)
[2022-04-13] MEDS: APIXABAN 5 MG TABLET PO SCH ×2 (09:10→22:02)
[2022-04-13] MEDS: LISINOPRIL 10 MG TABLET PO SCH (09:10)
[2022-04-13] MEDS: predniSONE 20 MG TABLET (UD) PO SCH (09:10)
[2022-04-13] MEDS: PANTOPRAZOLE 40 MG TABLET PO SCH (09:10)
[2022-04-13] MEDS: TIMOLOL 0.5% OPHTHALMIC SOL 5 ML BOTTLE OU SCH (09:11)
[2022-04-13] MEDS: BRIMONIDINE TARTRATE 0.2% OPHTHALMIC 5 ML BOTTLE OU SCH (09:11)
[2022-04-14] MEDS: LEVOTHYROXINE NA 75 MCG TABLET (FP) PO SCH (06:35)
[2022-04-14] MEDS: AMOX TR/POT CLAV 875MG/125MG TABLETS (FP) PO SCH ×2 (10:48→17:54)
[2022-04-14] MEDS: predniSONE 20 MG TABLET (UD) PO SCH (10:48)
[2022-04-14] MEDS: APIXABAN 5 MG TABLET PO SCH ×2 (10:48→22:00)
[2022-04-14] MEDS: ASPIRIN COATED 81 MG TABLET.EC PO SCH (10:48)
[2022-04-14] MEDS: LISINOPRIL 10 MG TABLET PO SCH (10:49)
[2022-04-14] MEDS: PANTOPRAZOLE 40 MG TABLET PO SCH (10:49)
[2022-04-14] MEDS: SOLIFENACIN SUCCINATE 5 MG TAB PO SCH (10:49)
[2022-04-14] MEDS: FUROSEMIDE 20 MG TABLET (FP) PO SCH (10:49)
[2022-04-14] MEDS: TIMOLOL 0.5% OPHTHALMIC SOL 5 ML BOTTLE OU SCH (10:50)
[2022-04-14] MEDS: BRIMONIDINE TARTRATE 0.2% OPHTHALMIC 5 ML BOTTLE OU SCH (10:50)
[2022-04-14] MEDS ORDERED: predniSONE 20 MG TABLET (UD) PO SCH (11:05)
[2022-04-15] MEDS: LEVOTHYROXINE NA 75 MCG TABLET (FP) PO SCH (06:23)
[2022-04-15 09:28] LABS: BASO % 0.2 % (0-2.0); EOS % 0.1 % (0-4.5); HEMATOCRIT 42.2 % (32.4-45.2); HEMOGLOBIN 13.3 GM/dL (10.7-15.3); MCH 28.2 pg (25.7-33.7); MCHC 31.5 g/dl (32.0-36.0); MEAN CELL VOLUME 89.6 fl (80-96); MEAN PLT VOLUME 7.6 fl (7.5-11.1); MONO % 3.3 % (3.8-10.2); NEUT % 86.4 % (42.8-82.8); PLATELET COUNT 291 10^3/uL (134-434); RBC 4.72 M/mm3 (3.60-5.2); RDW 17.3 % (11.6-15.6); WHITE BLOOD COUNT 19.1 K/mm3 (4.0-10.0)
[2022-04-15 09:44] LABS: BLOOD UREA NITROGEN 32.9 mg/dL (7-18)
[2022-04-15 09:49] LABS: CALCIUM 9.9 mg/dL (8.5-10.1)
[2022-04-15 09:50] LABS: CREATININE 1.2 mg/dL (0.55-1.3)
[2022-04-15] MEDS: SOLIFENACIN SUCCINATE 5 MG TAB PO SCH (11:25)
[2022-04-15] MEDS: ASPIRIN COATED 81 MG TABLET.EC PO SCH (11:26)
[2022-04-15] MEDS: PANTOPRAZOLE 40 MG TABLET PO SCH (11:26)
[2022-04-15] MEDS: FUROSEMIDE 20 MG TABLET (FP) PO SCH (11:26)
[2022-04-15] MEDS: LISINOPRIL 10 MG TABLET PO SCH (11:26)
[2022-04-15] MEDS: AMOX TR/POT CLAV 875MG/125MG TABLETS (FP) PO SCH ×2 (11:26→18:15)
[2022-04-15] MEDS: APIXABAN 5 MG TABLET PO SCH ×2 (11:26→21:37)
[2022-04-15] MEDS: TIMOLOL 0.5% OPHTHALMIC SOL 5 ML BOTTLE OU SCH (11:27)
[2022-04-15] MEDS: BRIMONIDINE TARTRATE 0.2% OPHTHALMIC 5 ML BOTTLE OU SCH (11:27)
[2022-04-16] MEDS: LEVOTHYROXINE NA 75 MCG TABLET (FP) PO SCH (06:01)
[2022-04-16] MEDS ORDERED: INSULIN (LEVEMIR) 100 UNITS/ML UNITS SQ ONE (08:16)
[2022-04-16] MEDS: APIXABAN 5 MG TABLET PO SCH ×2 (11:10→21:53)
[2022-04-16] MEDS: predniSONE 20 MG TABLET (UD) PO SCH (11:10)
[2022-04-16] MEDS: LISINOPRIL 10 MG TABLET PO SCH (11:10)
[2022-04-16] MEDS: FUROSEMIDE 20 MG TABLET (FP) PO SCH (11:10)
[2022-04-16] MEDS: SOLIFENACIN SUCCINATE 5 MG TAB PO SCH (11:11)
[2022-04-16] MEDS: PANTOPRAZOLE 40 MG TABLET PO SCH (11:11)
[2022-04-16] MEDS: BRIMONIDINE TARTRATE 0.2% OPHTHALMIC 5 ML BOTTLE OU SCH (11:11)
[2022-04-16] MEDS: ASPIRIN COATED 81 MG TABLET.EC PO SCH (11:11)
[2022-04-16] MEDS: TIMOLOL 0.5% OPHTHALMIC SOL 5 ML BOTTLE OU SCH (11:12)
[2022-04-17 04:32] VITALS: RESP 18
[2022-04-17] MEDS: LEVOTHYROXINE NA 75 MCG TABLET (FP) PO SCH (06:11)
[2022-04-17 10:01] VITALS: BP 143/70; PULSE 89; TEMP 98.6
[2022-04-17] MEDS: ASPIRIN COATED 81 MG TABLET.EC PO SCH (10:36)
[2022-04-17] MEDS: FUROSEMIDE 20 MG TABLET (FP) PO SCH (10:36)
[2022-04-17] MEDS: APIXABAN 5 MG TABLET PO SCH (10:36)
[2022-04-17] MEDS: predniSONE 20 MG TABLET (UD) PO SCH (10:37)
[2022-04-17] MEDS: LISINOPRIL 10 MG TABLET PO SCH (10:37)
[2022-04-17] MEDS: PANTOPRAZOLE 40 MG TABLET PO SCH (10:37)
[2022-04-17] MEDS: SOLIFENACIN SUCCINATE 5 MG TAB PO SCH (10:38)
[2022-04-17] MEDS: TIMOLOL 0.5% OPHTHALMIC SOL 5 ML BOTTLE OU SCH (10:44)
[2022-04-17] MEDS: BRIMONIDINE TARTRATE 0.2% OPHTHALMIC 5 ML BOTTLE OU SCH (10:44)
[2022-04-17 11:49] LABS: N-TERMINAL BNP 2740.9 pg/ml (5-450)
== END 2022-04-17 15:18 | disposition home or self-care (01) | DRG 291 ==
LOC: JER 09:08 → JERBED 10:03 → J4W 20:18 → J7W 04-06 18:41
PROVIDERS: ADMIT Internal Medicine; ATTEND Internal Medicine
DX: I11.0 Hypertensive heart disease with heart failure (principal); I50.31 Acute diastolic (congestive) heart failure; J18.9 Pneumonia, unspecified organism; J96.91 Respiratory failure, unspecified with hypoxia; J44.1 Chronic obstructive pulmonary disease with (acute) exacerbation; I24.8 Other forms of acute ischemic heart disease; E03.9 Hypothyroidism, unspecified; I48.91 Unspecified atrial fibrillation; E78.5 Hyperlipidemia, unspecified; E66.9 Obesity, unspecified; Z68.36 Body mass index [BMI] 36.0-36.9, adult; I44.7 Left bundle-branch block, unspecified
CPT/HCPCS: 0241U-QW; 36415; 70450-TC; 71045-TC-FY; 71275-TC; 80048; 80053; 82803; 83735; 83880; 84100; 84484; 85025; 85610; 85730; 87040; 87070; 87205; 87899; 93005; 93010; 93306-TC; 94640; 94660; 94761; 97116-GP; 97161-GP; 99291; C9803-CS; Q9967; U0003; U0005

== ENCOUNTER 2022-06-18 14:59 | Inpatient (IN) | payer OTHER ==
[2022-06-18] MEDS ORDERED: DEXAMETHASONE SOD PHOSPHATE 20 MG/5 ML VIAL IVPB ONE (16:25)
[2022-06-18] MEDS ORDERED: DEXAMETHASONE SOD PHOSPHATE 10 MG/1 ML VIAL ONE (16:53)
[2022-06-18] MEDS: ALBUTEROL SO4 2.5/IPRATROPIUM 0.5 INH SOL 3 ML VIAL.NEB. NEB SCH ×2 (16:59→17:22)
[2022-06-18] MEDS ORDERED: METOPROLOL TARTRATE 5 MG/5 ML VIAL IVPUSH ONE ×2 (17:01→17:25)
[2022-06-18] MEDS ORDERED: METOCLOPRAMIDE HCL INJECTION 10 MG/2 ML VIAL ONE (17:03)
[2022-06-18] MEDS ORDERED: METOPROLOL TARTRATE 5 MG/5 ML VIAL ONE ×2 (17:04→17:26)
[2022-06-18 17:13] LABS: VENOUS BASE EXCESS -1.5 mmol/L (-2-2); VENOUS O2 SATURATION 89.5 % (70-80); VENOUS PCO2 36.3 mmHg (38-52); VENOUS PH 7.412 (7.310-7.410)
[2022-06-18 17:18] LABS: HEMATOCRIT 42.4 % (32.4-45.2); HEMOGLOBIN 13.9 GM/dL (10.7-15.3); MCH 29.5 pg (25.7-33.7); MCHC 32.8 g/dl (32.0-36.0); MEAN CELL VOLUME 90.1 fl (80-96); MEAN PLT VOLUME 7.6 fl (7.5-11.1); PLATELET COUNT 211 10^3/uL (134-434); RBC 4.71 M/mm3 (3.60-5.2); RDW 16.4 % (11.6-15.6); WHITE BLOOD COUNT 7.6 K/mm3 (4.0-10.0)
[2022-06-18 17:32] LABS: CHLORIDE 108 mmol/L (98-107); SODIUM 143 mmol/L (136-145)
[2022-06-18 17:34] LABS: ALBUMIN 4.1 g/dl (3.4-5.0); ANION GAP 13 MMOL/L (8-16); CO2 21 mmol/L (21-32)
[2022-06-18 17:35] LABS: GLUCOSE,RANDOM 193 mg/dL (74-106)
[2022-06-18 17:38] LABS: CREATININE 1.2 mg/dL (0.55-1.3); SGPT/ALT 14 U/L (13-61)
[2022-06-18 17:39] LABS: BILIRUBIN,TOTAL 1.3 mg/dL (0.2-1); INR 2.17 (0.83-1.09); PROTHROMBIN TIME (PATIENT) 25.2 SEC (9.7-13.0); SGOT/AST 34 U/L (15-37); TOT PROT 7.4 g/dl (6.4-8.2)
[2022-06-18 17:41] LABS: ALK PHOS 83 U/L (45-117)
[2022-06-18 17:42] LABS: ACTIVATED PTT 31.9 SECONDS (25.2-36.5)
[2022-06-18 17:45] LABS: LACTIC ACID 2.1 mmol/L (0.4-2.0)
[2022-06-18 18:31] LABS: N-TERMINAL BNP 15233.1 pg/ml (5-450)
[2022-06-18] MEDS ORDERED: FUROSEMIDE 40 MG/4 ML INJECTABLE VIAL IVPUSH ONE (18:35)
[2022-06-18] MEDS ORDERED: VANCOMYCIN 1 GM in D5W (PRE-DOCKED) 1,000 MG/250 ML IVPB ONE (19:02)
[2022-06-18] MEDS ORDERED: PIPERACILLIN/TAZOB 3.375 GM 3.375 GM in DEXTROSE 5%-WATER - 50 ML IVPB ONE (19:02)
[2022-06-18] MEDS ORDERED: ACETAMINOPHEN 1000 MG/100 ML BAG IVPB ONE (19:03)
[2022-06-18] MEDS ORDERED: PIPERACILLIN/TAZOB 3.375 GM 3.375 GM/50 ML BAG IVPB ONE (19:31)
[2022-06-18] MEDS ORDERED: FUROSEMIDE 40 MG/4 ML INJECTABLE VIAL ONE (19:31)
[2022-06-18] MEDS ORDERED: ACETAMINOPHEN INJECTION 100 ML IVPB ONE (19:31)
[2022-06-18 19:54] LABS: ANISOCYTOSIS 0; MACROCYTOSIS 0; PLATELET ESTIMATE NORMAL
[2022-06-18] MEDS ORDERED: METOPROLOL TARTRATE 50 MG TABLET (FP) PO ONE (19:56)
[2022-06-18] MEDS ORDERED: VANCOMYCIN/WATER FOR INJ (PEG) 1,000 MG/200 ML BAG IVPB ONE (20:09)
[2022-06-18] MEDS ORDERED: METOPROLOL TARTRATE 50 MG TABLET (FP) ONE (20:50)
[2022-06-18] MEDS ORDERED: APIXABAN 5 MG TABLET ONE (22:15)
[2022-06-18] MEDS ORDERED: ALBUTEROL SO4 HFA INHALER IH PRN (22:16)
[2022-06-18] MEDS: APIXABAN 5 MG TABLET PO SCH (22:22)
[2022-06-18] MEDS ORDERED: PATIENT'S OWN MEDICATION (NON-FORMULARY) (Brimonidine Tartrate/Timolol [Combigan 0.2%-0.5% OU SCH (22:30)
[2022-06-18 23:53] LABS: EPI CELLS 8 /uL (0-25.1); HYALINE CASTS 0 /uL (0-3.1); PH,URINE 5.5 (5.0-8.0); URINE APPEARANCE CLEAR; URINE BACTERIA 1709 /uL (0-1359); URINE BILIRUBIN NEGATIVE (NEGATIVE); URINE COLOR YELLOW; URINE GLUCOSE (UA) NEGATIVE (NEGATIVE); URINE KETONE NEGATIVE (NEGATIVE); URINE LEUK ESTERASE TRACE (NEGATIVE); URINE NITRITE POSITIVE (NEGATIVE); URINE PROTEIN 1+ (NEGATIVE); URINE RBC 9 /uL (0-23.9); URINE UROBILINOGEN 0.2 mg/dL (0.2-1.0); URINE WBC 55 /uL (0-25.8)
[2022-06-19 07:41] LABS: BASO % 0.3 % (0-2.0); EOS % 0.3 % (0-4.5); HEMATOCRIT 36.7 % (32.4-45.2); LYMPH % 6.8 % (8-40); MCH 29.5 pg (25.7-33.7); MCHC 32.6 g/dl (32.0-36.0); MEAN CELL VOLUME 90.6 fl (80-96); MEAN PLT VOLUME 7.5 fl (7.5-11.1); MONO % 5.6 % (3.8-10.2); PLATELET COUNT 189 10^3/uL (134-434); RBC 4.05 M/mm3 (3.60-5.2); RDW 16.6 % (11.6-15.6); WHITE BLOOD COUNT 8.8 K/mm3 (4.0-10.0)
[2022-06-19 07:57] LABS: CHLORIDE 107 mmol/L (98-107); SODIUM 145 mmol/L (136-145)
[2022-06-19 08:00] LABS: CALCIUM 9.1 mg/dL (8.5-10.1)
[2022-06-19 08:01] LABS: ALBUMIN 3.7 g/dl (3.4-5.0); BLOOD UREA NITROGEN 23.5 mg/dL (7-18); CO2 27 mmol/L (21-32); GLUCOSE,RANDOM 113 mg/dL (74-106)
[2022-06-19 08:04] LABS: CREATININE 1.3 mg/dL (0.55-1.3); SGOT/AST 20 U/L (15-37); SGPT/ALT 13 U/L (13-61)
[2022-06-19 08:05] LABS: BILIRUBIN,TOTAL 1.3 mg/dL (0.2-1); TOT PROT 6.8 g/dl (6.4-8.2)
[2022-06-19 08:07] LABS: ALK PHOS 70 U/L (45-117)
[2022-06-19 08:25] LABS: ANION GAP 11 MMOL/L (8-16)
[2022-06-19 09:30] LABS: MAGNESIUM 1.5 mg/dL (1.8-2.4)
[2022-06-19] MEDS ORDERED: MAGNESIUM SULF 50% (8.12 MEQ/2 ML-1 GM VIAL) IVPB ONE (09:43)
[2022-06-19] MEDS ORDERED: CEFTRIAXONE 1 GM in DEXTROSE 5%-WATER - 50 ML IVPB SCH (10:00)
[2022-06-19] MEDS ORDERED: PANTOPRAZOLE 40 MG TABLET PO ONE (12:44)
[2022-06-19] MEDS ORDERED: ASPIRIN 81 MG CHEWABLE TABLETS ONE (12:44)
[2022-06-19] MEDS ORDERED: POTASSIUM CHLORIDE TABS 20 MEQ TABLET.ER (FP) PO ONE (12:44)
[2022-06-19] MEDS ORDERED: APIXABAN 5 MG TABLET ONE (12:44)
[2022-06-19] MEDS ORDERED: MAGNESIUM 1GM/D5W - 1 GM/100 ML IVPB IVPB ONE (12:45)
[2022-06-19] MEDS ORDERED: CEFTRIAXONE 1 GM/50 ML BAG ONE (12:45)
[2022-06-19] MEDS ORDERED: LISINOPRIL 10 MG TABLET ONE (12:45)
[2022-06-19] MEDS ORDERED: LEVOTHYROXINE NA 50 MCG TABLET (FP) ONE (12:45)
[2022-06-19] MEDS ORDERED: KCL 10 MEQ IVPB 30 MEQ/300 ML INFUS.BAG IVPB ONE (12:46)
[2022-06-19] MEDS: KCL 10 MEQ IVPB 10 MEQ/100 ML INFUS.BAG IVPB SCH (12:48)
[2022-06-19] MEDS: LEVOTHYROXINE NA 150 MCG TABLET PO SCH (12:48)
[2022-06-19] MEDS: POTASSIUM CHLORIDE TABS 20 MEQ TABLET.ER (FP) PO SCH (12:49)
[2022-06-19] MEDS: APIXABAN 5 MG TABLET PO SCH ×2 (12:49→21:44)
[2022-06-19] MEDS: ASPIRIN 81 MG CHEWABLE TABLETS PO SCH (12:49)
[2022-06-19] MEDS: BRIMONIDINE TARTRATE 0.2% OPHTHALMIC 5 ML BOTTLE OU SCH ×2 (12:49→21:44)
[2022-06-19] MEDS: TIMOLOL 0.5% OPHTHALMIC SOL 5 ML BOTTLE OU SCH (12:50)
[2022-06-19] MEDS: LISINOPRIL 10 MG TABLET PO SCH (12:50)
[2022-06-19] MEDS: PANTOPRAZOLE 40 MG TABLET PO SCH (12:50)
[2022-06-19] MEDS: CYANOCOBALAMIN (VITAMIN B-12) 100 MCG TABLET PO SCH (12:53)
[2022-06-19] MEDS: SOLIFENACIN SUCCINATE 5 MG TAB PO SCH (12:53)
[2022-06-19] MEDS: LATANOPROST 0.005% OPHTH SOLN 2.5ML BOTTLE OU SCH (21:44)
[2022-06-19 22:37] LABS: CHOLESTEROL 138 mg/dL (50-200); TRIGLYCERIDES 116 mg/dL (0-150)
[2022-06-19 22:38] LABS: LDL CHOLESTEROL (ONLY SJRH) 66 mg/dL (5-100)
[2022-06-19 22:40] LABS: HDL CHOLESTEROL 57 mg/dL (40-60)
[2022-06-20 02:12] VITALS: BMI 31.1
[2022-06-20] MEDS: LEVOTHYROXINE NA 150 MCG TABLET PO SCH (06:05)
[2022-06-20 08:34] LABS: BASO % 0.3 % (0-2.0); EOS % 2.5 % (0-4.5); HEMATOCRIT 33.7 % (32.4-45.2); HEMOGLOBIN 11.1 GM/dL (10.7-15.3); LYMPH % 12.1 % (8-40); MCH 29.4 pg (25.7-33.7); MEAN CELL VOLUME 89.2 fl (80-96); MONO % 9.3 % (3.8-10.2); NEUT % 75.8 % (42.8-82.8); PLATELET COUNT 173 10^3/uL (134-434); RBC 3.78 M/mm3 (3.60-5.2); RDW 16.6 % (11.6-15.6); WHITE BLOOD COUNT 8.9 K/mm3 (4.0-10.0)
[2022-06-20 09:19] LABS: CALCIUM 9.8 mg/dL (8.5-10.1)
[2022-06-20 09:20] LABS: BLOOD UREA NITROGEN 21.8 mg/dL (7-18)
[2022-06-20 09:23] LABS: CREATININE 0.9 mg/dL (0.55-1.3)
[2022-06-20] MEDS: SOLIFENACIN SUCCINATE 5 MG TAB PO SCH (09:46)
[2022-06-20] MEDS: CYANOCOBALAMIN (VITAMIN B-12) 100 MCG TABLET PO SCH (09:46)
[2022-06-20] MEDS: LISINOPRIL 10 MG TABLET PO SCH (09:47)
[2022-06-20] MEDS: ASPIRIN 81 MG CHEWABLE TABLETS PO SCH (09:47)
[2022-06-20] MEDS: POTASSIUM CHLORIDE TABS 20 MEQ TABLET.ER (FP) PO SCH (09:47)
[2022-06-20] MEDS: PANTOPRAZOLE 40 MG TABLET PO SCH (09:47)
[2022-06-20] MEDS: APIXABAN 5 MG TABLET PO SCH ×2 (09:48→22:03)
[2022-06-20] MEDS: CEFTRIAXONE 1 GM in DEXTROSE 5%-WATER - 50 ML IVPB SCH (09:48)
[2022-06-20] MEDS ORDERED: FUROSEMIDE 40 MG/4 ML INJECTABLE VIAL IVPUSH SCH (10:00)
[2022-06-20] MEDS: BRIMONIDINE TARTRATE 0.2% OPHTHALMIC 5 ML BOTTLE OU SCH ×2 (11:20→22:04)
[2022-06-20] MEDS: TIMOLOL 0.5% OPHTHALMIC SOL 5 ML BOTTLE OU SCH (11:21)
[2022-06-20] MEDS ORDERED: POTASSIUM CHLORIDE ORAL LIQUID 20 MEQ/15 ML PO ONE (12:53)
[2022-06-20] MEDS ORDERED: LISINOPRIL 20 MG TABLET PO SCH (12:58)
[2022-06-20] MEDS: LATANOPROST 0.005% OPHTH SOLN 2.5ML BOTTLE OU SCH (22:03)
[2022-06-21] MEDS: LEVOTHYROXINE NA 150 MCG TABLET PO SCH (06:10)
[2022-06-21 08:19] LABS: BASO % 0.4 % (0-2.0); HEMATOCRIT 33.8 % (32.4-45.2); LYMPH % 15.9 % (8-40); MCH 29.2 pg (25.7-33.7); MCHC 32.5 g/dl (32.0-36.0); MEAN CELL VOLUME 89.9 fl (80-96); MEAN PLT VOLUME 8.1 fl (7.5-11.1); NEUT % 69.7 % (42.8-82.8); PLATELET COUNT 184 10^3/uL (134-434); RBC 3.76 M/mm3 (3.60-5.2); RDW 16.5 % (11.6-15.6); WHITE BLOOD COUNT 7.8 K/mm3 (4.0-10.0)
[2022-06-21 08:39] LABS: BLOOD UREA NITROGEN 21.5 mg/dL (7-18); CALCIUM 10.4 mg/dL (8.5-10.1)
[2022-06-21 08:43] LABS: CREATININE 0.8 mg/dL (0.55-1.3)
[2022-06-21] MEDS: BRIMONIDINE TARTRATE 0.2% OPHTHALMIC 5 ML BOTTLE OU SCH ×2 (09:25→22:00)
[2022-06-21] MEDS: PANTOPRAZOLE 40 MG TABLET PO SCH (09:25)
[2022-06-21] MEDS: POTASSIUM CHLORIDE TABS 20 MEQ TABLET.ER (FP) PO SCH (09:26)
[2022-06-21] MEDS: APIXABAN 5 MG TABLET PO SCH ×2 (09:26→21:46)
[2022-06-21] MEDS: CYANOCOBALAMIN (VITAMIN B-12) 100 MCG TABLET PO SCH (09:26)
[2022-06-21] MEDS: CEFTRIAXONE 1 GM in DEXTROSE 5%-WATER - 50 ML IVPB SCH (09:27)
[2022-06-21] MEDS: TIMOLOL 0.5% OPHTHALMIC SOL 5 ML BOTTLE OU SCH (09:27)
[2022-06-21] MEDS: ASPIRIN 81 MG CHEWABLE TABLETS PO SCH (09:27)
[2022-06-21] MEDS: SOLIFENACIN SUCCINATE 5 MG TAB PO SCH (09:28)
[2022-06-21] MEDS: FUROSEMIDE 40 MG TABLET (FP) PO SCH (13:39)
[2022-06-21] MEDS: LATANOPROST 0.005% OPHTH SOLN 2.5ML BOTTLE OU SCH (22:00)
[2022-06-22] MEDS: FUROSEMIDE 40 MG TABLET (FP) PO SCH ×2 (06:21→14:47)
[2022-06-22] MEDS: LEVOTHYROXINE NA 150 MCG TABLET PO SCH (06:24)
[2022-06-22] MEDS ORDERED: ALBUTEROL SO4 HFA INHALER IH PRN (07:18)
[2022-06-22] MEDS ORDERED: LEVOTHYROXINE NA 75 MCG TABLET (FP) PO SCH (08:15)
[2022-06-22] MEDS ORDERED: SOLIFENACIN SUCCINATE 5 MG TAB PO SCH (10:00)
[2022-06-22] MEDS ORDERED: LISINOPRIL 20 MG TABLET PO SCH (10:00)
[2022-06-22] MEDS ORDERED: TIMOLOL 0.5% OPHTHALMIC SOL 5 ML BOTTLE OU SCH (10:00)
[2022-06-22] MEDS ORDERED: PANTOPRAZOLE 40 MG TABLET PO SCH (10:00)
[2022-06-22] MEDS ORDERED: POTASSIUM CHLORIDE TABS 20 MEQ TABLET.ER (FP) PO SCH (10:00)
[2022-06-22] MEDS ORDERED: ASPIRIN 81 MG CHEWABLE TABLETS PO SCH (10:00)
[2022-06-22] MEDS ORDERED: CYANOCOBALAMIN (VITAMIN B-12) 100 MCG TABLET PO SCH (10:00)
[2022-06-22] MEDS ORDERED: CEFTRIAXONE 1 GM in DEXTROSE 5%-WATER - 50 ML IVPB SCH (10:00)
[2022-06-22] MEDS: APIXABAN 5 MG TABLET PO SCH ×2 (10:20→21:34)
[2022-06-22] MEDS: BRIMONIDINE TARTRATE 0.2% OPHTHALMIC 5 ML BOTTLE OU SCH ×2 (10:23→21:34)
[2022-06-22] MEDS ORDERED: LATANOPROST 0.005% OPHTH SOLN 2.5ML BOTTLE OU SCH (22:00)
[2022-06-22 22:22] VITALS: TEMP 97.4
[2022-06-23 02:55] VITALS: BP 138/88; PULSE 85; RESP 19
== END 2022-06-23 02:57 | disposition home or self-care (01) | DRG 291 ==
LOC: JER 14:59 → JERBED 18:34 → J4W 06-19 19:48 → J7W 06-21 10:48
PROVIDERS: ADMIT Internal Medicine; ATTEND Internal Medicine
DX: I11.0 Hypertensive heart disease with heart failure (principal); G93.41 Metabolic encephalopathy; I50.33 Acute on chronic diastolic (congestive) heart failure; J18.9 Pneumonia, unspecified organism; I48.20 Chronic atrial fibrillation, unspecified; N39.0 Urinary tract infection, site not specified; E03.9 Hypothyroidism, unspecified; E78.5 Hyperlipidemia, unspecified; E83.42 Hypomagnesemia; E87.6 Hypokalemia
CPT/HCPCS: 0241U-QW; 36415; 71045-TC-FY; 80048; 80053; 80061; 81003; 82310; 82553; 82803; 83036; 83605; 83735; 83880; 83970; 84100; 84443; 84484; 85025; 85610; 85730; 86850; 86900; 86901; 87040; 87086; 87186; 93005; 93010; 94660; 94761; 99285-25

== ENCOUNTER 2022-06-23 03:35 | Observation (INO) | payer OTHER ==
[2022-06-23 05:08] VITALS: BMI 35.5
[2022-06-23] MEDS ORDERED: ALBUTEROL SO4 HFA INHALER IH PRN (05:37)
[2022-06-23] MEDS ORDERED: LEVOTHYROXINE 100 MCG, LEVOTHYROXINE 50 MCG PO SCH (07:00)
[2022-06-23] MEDS ORDERED: LEVOTHYROXINE NA 150 MCG TABLET PO SCH (07:00)
[2022-06-23 08:45] LABS: BASO % 0.6 % (0-2.0); EOS % 5.1 % (0-4.5); HEMOGLOBIN 12.1 GM/dL (10.7-15.3); LYMPH % 23.7 % (8-40); MCH 29.8 pg (25.7-33.7); MCHC 33.6 g/dl (32.0-36.0); MEAN CELL VOLUME 88.5 fl (80-96); MEAN PLT VOLUME 7.5 fl (7.5-11.1); MONO % 10.9 % (3.8-10.2); NEUT % 59.7 % (42.8-82.8); PLATELET COUNT 215 10^3/uL (134-434); RBC 4.07 M/mm3 (3.60-5.2); RDW 16.1 % (11.6-15.6); WHITE BLOOD COUNT 7.3 K/mm3 (4.0-10.0)
[2022-06-23] MEDS: PANTOPRAZOLE 40 MG TABLET PO SCH (09:08)
[2022-06-23] MEDS: FUROSEMIDE 40 MG TABLET (FP) PO SCH (09:08)
[2022-06-23] MEDS: LISINOPRIL 20 MG TABLET PO SCH (09:08)
[2022-06-23] MEDS: ASPIRIN 81 MG CHEWABLE TABLETS PO SCH (09:08)
[2022-06-23] MEDS: CYANOCOBALAMIN (VITAMIN B-12) 100 MCG TABLET PO SCH (09:08)
[2022-06-23] MEDS: CEFUROXIME AXETIL 500 MG TABLET PO SCH ×2 (09:08→23:33)
[2022-06-23] MEDS: CHOLECALCIFEROL (VIT D3) 1,000 UNIT (25 MCG) TABLET PO SCH (09:08)
[2022-06-23] MEDS: OXYBUTYNIN CHLORIDE 5 MG TABLET PO SCH (09:08)
[2022-06-23] MEDS: APIXABAN 5 MG TABLET PO SCH ×2 (09:08→23:33)
[2022-06-23 09:39] LABS: CREATININE 0.9 mg/dL (0.55-1.3)
[2022-06-23] MEDS: BRIMONIDINE TARTRATE 0.2% OPHTHALMIC 5 ML BOTTLE OU SCH (23:34)
[2022-06-23] MEDS: TIMOLOL 0.5% OPHTHALMIC SOL 5 ML BOTTLE OU SCH (23:35)
[2022-06-23] MEDS: LATANOPROST 0.005% OPHTH SOLN 2.5ML BOTTLE OU SCH (23:35)
[2022-06-24] MEDS: LEVOTHYROXINE NA 150 MCG TABLET PO SCH (06:21)
[2022-06-24] MEDS: CEFUROXIME AXETIL 500 MG TABLET PO SCH ×2 (11:05→21:59)
[2022-06-24] MEDS: ASPIRIN 81 MG CHEWABLE TABLETS PO SCH (11:05)
[2022-06-24] MEDS: PANTOPRAZOLE 40 MG TABLET PO SCH (11:05)
[2022-06-24] MEDS: FUROSEMIDE 40 MG TABLET (FP) PO SCH (11:05)
[2022-06-24] MEDS: APIXABAN 5 MG TABLET PO SCH ×2 (11:05→21:59)
[2022-06-24] MEDS: OXYBUTYNIN CHLORIDE 5 MG TABLET PO SCH (11:06)
[2022-06-24] MEDS: LISINOPRIL 20 MG TABLET PO SCH (11:06)
[2022-06-24] MEDS: CYANOCOBALAMIN (VITAMIN B-12) 100 MCG TABLET PO SCH (11:06)
[2022-06-24] MEDS: CHOLECALCIFEROL (VIT D3) 1,000 UNIT (25 MCG) TABLET PO SCH (11:07)
[2022-06-24] MEDS: LATANOPROST 0.005% OPHTH SOLN 2.5ML BOTTLE OU SCH (22:02)
[2022-06-24] MEDS: TIMOLOL 0.5% OPHTHALMIC SOL 5 ML BOTTLE OU SCH (22:02)
[2022-06-24] MEDS: BRIMONIDINE TARTRATE 0.2% OPHTHALMIC 5 ML BOTTLE OU SCH (22:03)
[2022-06-25] MEDS: LEVOTHYROXINE NA 150 MCG TABLET PO SCH (06:36)
[2022-06-25 08:29] VITALS: BP 128/74
[2022-06-25] MEDS: PANTOPRAZOLE 40 MG TABLET PO SCH (09:56)
[2022-06-25] MEDS: CEFUROXIME AXETIL 500 MG TABLET PO SCH (09:56)
[2022-06-25] MEDS: ASPIRIN 81 MG CHEWABLE TABLETS PO SCH (09:56)
[2022-06-25] MEDS: APIXABAN 5 MG TABLET PO SCH (09:56)
[2022-06-25] MEDS: CYANOCOBALAMIN (VITAMIN B-12) 100 MCG TABLET PO SCH (09:56)
[2022-06-25] MEDS: FUROSEMIDE 40 MG TABLET (FP) PO SCH (09:56)
[2022-06-25] MEDS: CHOLECALCIFEROL (VIT D3) 1,000 UNIT (25 MCG) TABLET PO SCH (09:56)
[2022-06-25] MEDS: OXYBUTYNIN CHLORIDE 5 MG TABLET PO SCH (09:56)
[2022-06-25] MEDS: LISINOPRIL 20 MG TABLET PO SCH (09:56)
[2022-06-25 10:13] LABS: BASO % 0.4 % (0-2.0); EOS % 5.1 % (0-4.5); HEMATOCRIT 37.8 % (32.4-45.2); HEMOGLOBIN 12.2 GM/dL (10.7-15.3); LYMPH % 17.1 % (8-40); MCH 28.9 pg (25.7-33.7); MCHC 32.3 g/dl (32.0-36.0); MEAN CELL VOLUME 89.5 fl (80-96); MEAN PLT VOLUME 7.8 fl (7.5-11.1); MONO % 6.8 % (3.8-10.2); NEUT % 70.6 % (42.8-82.8); PLATELET COUNT 261 10^3/uL (134-434); RBC 4.23 M/mm3 (3.60-5.2); RDW 16.4 % (11.6-15.6); WHITE BLOOD COUNT 10.1 K/mm3 (4.0-10.0)
[2022-06-25 10:28] LABS: CALCIUM 10.4 mg/dL (8.5-10.1)
[2022-06-25 10:29] LABS: BLOOD UREA NITROGEN 23.2 mg/dL (7-18)
[2022-06-25 10:32] LABS: CREATININE 1.2 mg/dL (0.55-1.3)
[2022-06-25 17:25] VITALS: PULSE 82; RESP 18; TEMP 98.2
== END 2022-06-25 17:50 ==
LOC: JER 03:35 → INTOOBSV 03:47 → JERBED 03:47 → J7W 04:24
PROVIDERS: ADMIT Internal Medicine; ATTEND Internal Medicine
DX: I11.0 Hypertensive heart disease with heart failure (principal); E03.9 Hypothyroidism, unspecified; I50.9 Heart failure, unspecified; N39.0 Urinary tract infection, site not specified; E78.5 Hyperlipidemia, unspecified; I48.91 Unspecified atrial fibrillation; J84.9 Interstitial pulmonary disease, unspecified; J44.9 Chronic obstructive pulmonary disease, unspecified; E05.00 Thyrotoxicosis with diffuse goiter without thyrotoxic crisis or storm; Z79.01 Long term (current) use of anticoagulants; F32.A Depression, unspecified; Z99.81 Dependence on supplemental oxygen; E66.8 Other obesity; Z68.33 Body mass index [BMI] 33.0-33.9, adult; Z87.891 Personal history of nicotine dependence; Z86.69 Personal history of other diseases of the nervous system and sense organs
CPT/HCPCS: 36415; 80048; 85025; 99285-25; G0378

== ENCOUNTER 2023-09-29 21:12 | Emergency (ER) | payer OTHER ==
[2023-09-29 21:29] VITALS: BMI 37.8
[2023-09-29 23:13] LABS: INR 1.38 (0.83-1.09); PROTHROMBIN TIME (PATIENT) 15.5 SEC (9.7-13.0)
[2023-09-29 23:16] LABS: ACTIVATED PTT 35.5 SECONDS (25.2-36.5)
[2023-09-30] MEDS ORDERED: ACETAMINOPHEN 325 MG TABLET (FP) ONE
[2023-09-30] MEDS: ACETAMINOPHEN 325 MG TABLET (FP) PO ONE (00:03)
[2023-09-30 01:27] VITALS: BP 150/80; PULSE 77; RESP 20; TEMP 97.6
== END 2023-09-30 02:21 ==
LOC: JER 21:12
DX: H11.31 Conjunctival hemorrhage, right eye (principal)
CPT/HCPCS: 36415; 85610; 85730; 99283-25